=== PATIENT | male | born 1975 | race Caucasian/White ===

== ENCOUNTER 2022-04-04 10:06 | Emergency (ER) | payer OTHER, SELFPAY ==
--- NOTE | ~2022-04-04 | CT_ITS ---
EXAMINATION: CT abdomen pelvis wo IV con CLINICAL INFORMATION: Reason for Exam mid to lower back pain radating to r flank/hip COMPARISON: No prior CT available for comparison. TECHNIQUE: Multidetector volumetric imaging was performed from the superior aspect of the liver through the pubic symphysis noncontrasted study. Sagittal and coronal reformatted images were obtained on the technologist's workstation. This CT examination was performed using dose optimization techniques as appropriate, variously including the following: *Automated exposure control *Adjustment of mA and/or kV according to patient size (this includes techniques or standardized protocols for targeted exams where dose is matched to indication/reason for exam; i.e. extremities or head) *Use of iterative reconstruction technique DLP: 653 mGy-cm FINDINGS: LOWER THORAX: Included lung bases are clear. HEPATOBILIARY: No focal hepatic lesions. No biliary ductal dilatation. GALLBLADDER: Gallbladder has been removed. Surgical clips in place. SPLEEN: Spleen is normal in size. PANCREAS: No focal mass or ductal dilatation. STOMACH AND GASTROINTESTINAL TRACT: Stomach is grossly unremarkable. There is no bowel distention or thickening. No CT evidence of appendicitis. ADRENALS: No adrenal nodules. KIDNEYS/URETERS: Cystic structure protruding from the upper pole left kidney measures 2.3 cm not well characterized on this noncontrast CT scan. Parts cyst middle pole right kidney measures 4.4 cm, the attenuation of its matrix 27 Hounsfield units, this is higher than expected for simple cysts, however unchanged from prior study of 2015 presumably benign. There is 5 mm right renal cortical calcification probably stone. No kidney stone or hydronephrosis. Kidneys normal in size. Perinephric fat are clear. URINARY BLADDER: Partially decompressed. PELVIC VISCERA: Unremarkable PERITONEUM: No free air or fluid. LYMPH NODES: No lymphadenopathy. VASCULAR:Abdominal aorta normal in size, no aneurysm found. BONES, ABDOMINAL WALL AND SOFT TISSUES: Age-appropriate changes of the spine and skeletal system, no destructive osteolytic or osteosclerotic bone lesion found CT/CT abdomen pelvis wo IV con IMPRESSION: * No CT evidence of acute intra-abdominal process to explain patient's pain symptoms. * There is 5 mm right renal cortical calcification probably nonobstructing stone. No hydronephrosis. * Bilateral renal cysts unchanged from prior CT of 2015, the largest is 4.4 cm middle pole right kidney, the attenuation of its matrix 27 Hounsfield units, this is higher than expected for simple cysts, however unchanged from prior CT of 2015 presumably benign. Ultrasound could be utilized for further characterization if clinically indicated. * Status post cholecystectomy.
[2022-04-04 10:08] VITALS: BP 181/111; PULSE 100; RESP 19; TEMP 36.6; O2SAT 98; BMI 30.2
[2022-04-04] MEDS: Cyclobenzaprine HCl 10 MG TABLET PO (10:45)
[2022-04-04] MEDS: oxyCODONE HCl Immed Release 5 MG TABLET PO (10:45)
[2022-04-04] MEDS: Ketorolac Tromethamine 60 MG/2 ML VIAL IM (10:46)
[2022-04-04 10:49] VITALS: BP 174/106; PULSE 100
--- NOTE | 2022-04-04 10:52 | PC.NURSE ---
Pt pacing in room, reporting 10/10 back pain for months, worse today. Medicated per the JUN.
--- NOTE | 2022-04-04 11:30 | ED.BACK ---
HPI - Back Pain/Injury General Chief Complaint: Back Pain/Injury <RENATO Keith Last Filed: 04/04/22 18:11> Stated Complaint: back pain <RENATO Keith Last Filed: 04/04/22 18:11> Time Seen by Provider: 04/04/22 10:20 <RENATO Keith Last Filed: 04/04/22 18:11> Source: patient <RENATO Keith Last Filed: 04/04/22 18:11> Mode of arrival: ambulatory <RENATO Keith Last Filed: 04/04/22 18:11> Limitations: no limitations <RENATO Keith Last Filed: 04/04/22 18:11> History of Present Illness HPI Narrative: 46yoM c PMHx of asthma, hyperlipidemia, GERD, anxiety, depression and Agoraphobia who is presenting to the ED with complaints of 2 months of back pain which started after he was lifting at home. Worse today. Reports it is worse with movement. Reports that the pain is sharp in nature. Reports it is the mid to lower back now radiating to bilateral flanks. Reports he has had back pain in the past although this feels different. Reports he went to an urgent care and was given muscle relaxant and provided mild to no symptomatic relief. He denies any fevers, chills, chest pain or shortness of breath, dyspnea on exertion, orthopnea palpitations, cough, rashes, recent falls or trauma, nausea vomiting, urinary or bowel incontinence or retention, IV drug use, saddle anesthesia, dysuria, hematuria, abnormal penile discharge, diarrhea constipation or any other symptoms complaints or concerns at this time. <RENATO Keith Last Filed: 04/04/22 18:11> MD elicited complaint: back pain <RENATO Keith Last Filed: 04/04/22 18:11> Onset (ago): month(s) (2 worse today) <RENATO Keith Last Filed: 04/04/22 18:11> Timing: constant <RENATO Keith Last Filed: 04/04/22 18:11> Severity: moderate <RENATO Keith Last Filed: 04/04/22 18:11> Similar Symptoms Previously: Yes <RENATO Keith - Last Filed: 04/04/22 18:11> Quality: sharp <RENATO Keith - Last Filed: 04/04/22 18:11> Location: lumbar spine and thoracic spine <RENATO Keith - Last Filed: 04/04/22 18:11> Radiation: abdomen (Bilateral flank) <RENATO Keith - Last Filed: 04/04/22 18:11> Exacerbating factors: movement, supine positioning, walking and lifting <RENATO Keith - Last Filed: 04/04/22 18:11> Relieving factors: none <RENATO Keith - Last Filed: 04/04/22 18:11> Context: while lifting, turning/twisting and bending <RENATO Keith - Last Filed: 04/04/22 18:11> Associated symptoms: denies other symptoms <RENATO Keith - Last Filed: 04/04/22 18:11> Treatments prior to arrival: NSAIDS, acetaminophen and other medications (muscle relaxants) <RENATO Keith - Last Filed: 04/04/22 18:11> Work related injury: No <RENATO Keith - Last Filed: 04/04/22 18:11> Related Data Home Medications: Home Medications Medication Instructions Recorded Confirmed albuterol sulfate 90 mcg/actuation 0 mcg inhalation 06/18/21 aerosol inhaler atorvastatin 10 mg tablet 10 mg PO DAILY 06/18/21 blood sugar diagnostic (FreeStyle #10 ea 06/18/21 Lite Strips) clonazepam 0.5 mg tablet 0 mg PO 06/18/21 dulaglutide 3 mg/0.5 mL mg subcut 06/18/21 subcutaneous pen injector ([facility]) ergocalciferol (vitamin D2) 1,250 1,250 mcg PO QWEEK 06/18/21 mcg (50,000 unit) capsule escitalopram oxalate 20 mg tablet 20 mg PO DAILY 06/18/21 esomeprazole magnesium 40 mg 40 mg PO BID 06/18/21 capsule,delayed release flash glucose sensor (FreeStyle #1 ea 06/18/21 Shelly 2 Sensor kit) fluticasone propionate 50 spray intranasal 06/18/21 mcg/actuation nasal spray,suspension insulin glargine 100 unit/mL (3 unit subcut 06/18/21 mL) subcutaneous pen (Lantus Solostar U-100 Insulin) metformin 1,000 mg tablet 1,000 mg PO BID 06/18/21 metoprolol succinate 50 mg 75 mg PO DAILY 06/18/21 tablet,extended release 24 hr pen needle, diabetic 32 gauge x #50 ea 06/18/21 (BD Venessa 2nd Gen Pen Needle) testosterone 50 mg/5 gram (1 %) 0 mg topical 06/18/21 transdermal gel umeclidinium 62.5 mcg-vilanterol 1 ea inhalation DAILY 06/18/21 25 mcg/actuation powdr for inhalation (Anoro Ellipta) Previous Rx's Medication Instructions Recorded amoxicillin 400 mg/5 mL oral 800 mg (10 mL) PO BID 7 days #140 06/18/21 suspension mL cyclobenzaprine 10 mg tablet 10 mg PO Q8H #14 tabs 04/04/22 naproxen 500 mg tablet 500 mg PO BID PRN pain #14 tabs 04/04/22 <RENATO Keith - Last Filed: 04/04/22 18:11> Allergies/Adverse Reactions: Allergies Allergy/AdvReac Type Severity Reaction Status Date / Time clindamycin Allergy Mild Rash Verified 06/18/21 15:53 doxycycline Allergy Mild Rash Verified 06/18/21 15:53 latex [LATEX] Allergy Mild SKIN Verified 04/04/22 12:04 IRRITATION <RENATO Keith - Last Filed: 04/04/22 18:11> Review of Systems Review of Systems: Constitutional : No trauma, No Weight loss, No Fever, No Chills, ENT/Mouth : No Hearing loss, No Ear Pain, No Nasal Congestion, No Sinus Pain, No Hoarseness, No sore throat, No Rhinorrhea, No Swallowing Difficulty Cardiovascular : No Chest Pain, No SOB Respiratory : No Cough, No Dyspnea Gastrointestinal : No Nausea, No Vomiting, No Diarrhea, + abdominal Pain, No Hematochezia, No Melena Genitourinary : No Dysuria, No Urinary Frequency, No Hematuria, No Urinary or Bowel Incontinence/retention Musculoskeletal : + Back pain, No neck pain, No joint stiffness, No joint swelling Skin : No Skin Lesions, No rash or signs of infection Neuro : No Weakness, No radiation, No Numbness, No Paresthesias, No headache, no loss of bowel or bladder incontinence, no saddle anesthesia, Focal weakness, No radiation Denies history of IV drug usage. <RENATO Keith - Last Filed: 04/04/22 18:11> Yes all other systems are reviewed and are negative <RENATO Keith - Last Filed: 04/04/22 18:11> [facility] Past Medical History Attestation statement: The following information was validated with the patient. <RENATO Keith - Last Filed: 04/04/22 18:11> Social History Social History: Social History Advance Directives: Yes Advance Directives Information Provided: Yes Advance Directives on File: No <RENATO Keith - Last Filed: 04/04/22 18:11> Physical Exam Vital Signs: Vital Signs: Last Vital Signs Temp 97.8 F 04/04/22 18:00 Pulse 91 04/04/22 18:00 Resp 16 04/04/22 18:00 BP 173/97 H 04/04/22 18:00 Pulse Ox 98 04/04/22 18:00 O2 Del Method 04/04/22 18:00 BMI result Body Mass Index 30.2 vital signs have been reviewed as normal and appeared to be correct. Blood pressure normal. Heart rate normal. Respiration rate normal. Temperature normal. Oxygen saturation normal. <RENATO Keith - Last Filed: 04/04/22 18:11> Vital Signs: Last Vital Signs Temp 97.8 F 04/04/22 18:00 Pulse 91 04/04/22 18:00 Resp 16 04/04/22 18:00 BP 173/97 H 04/04/22 18:00 Pulse Ox 98 04/04/22 18:00 O2 Del Method 04/04/22 18:00 BMI result Body Mass Index 30.2 <RENATO Cramer - Last Filed: 04/04/22 19:08> Appearance: Alert. Oriented X3. No acute distress. Head: Normal external exam. Normocephalic. Atraumatic. No Alvarez signs noted. No raccoon eyes noted Eyes: PERRLA. EOMI. Conjunctiva and sclera normal. Eyelids normal. ENT: EAC normal. TM's Normal. Pharynx normal. Uvula midline. Moist mucous membranes. No trismus noted. No drooling noted. No muffled voice noted. Neck: Normal inspection. Neck supple. FROM. No adenopathy. Thyroid Normal. No meningeal signs. No neck mass noted. CVS: Normal heart rate and rhythm. Heart sound normal. No murmurs noted. Pulses normal throughout. Respiratory: No respiratory distress. Painless inspiration. Breath sounds normal. No wheezes/rales/rhonchi noted. Chest nontender. No accessory muscle usage noted or decreased air movement noted. Abdomen: Soft and nontender. Bowel sounds normal in all 4 quadrants. No distention noted. No organomegaly noted. No visible injury noted. Back: No CVA tenderness. Full range of motion noted. No obvious deformities, or edema. Mild para-spinal muscular tenderness from lumbar region to coccyx. Full ROM in back and lower extremities. 5/5 strength hip extension/flexion, abduction, adduction. Mild Lumbar pain with hip flexion against resistance. Straight leg raise test negative on right; Straight leg raise test negative on left; Reflexes normal ankle and knee bilaterally; EHL motor strength normal bilaterally. No rashes/lesion/induration/fluctuance or signs infection noted. Skin: Skin warm and dry. Normal skin color. Normal skin turgor. No rashes/lesions/lacerations noted. Extremities: No lower extremity edema. Extremities exhibit normal range of motion. Extremities nontender. Neuro: Oriented X 3. No motor deficit. No sensory deficit. Reflexes normal. Patient has a normal steady gait. <RENATO Keith - Last Filed: 04/04/22 18:11> Course Course Course Narrative: 10:30am Pt c likely muscular pain, but could be herniated disc. Neuro exam shows no deficits. Not c/w AAA/epidural abscess/dissection.No high risk Hx (Incont, fever, immunosupp, recent surgery/LP, coag, signif trauma, wt loss, puls mass, hx/o Ca, TB, or IVDU) to warrant MRI. Not c/w Pyelo/UTI/spinal fx. Not cauda equina syndrome. Will obtain CT scan abdomen pelvis without IV contrast to evaluate for possible kidney stones. Provide symptomatic treatment with IM Toradol 60 mg, 10 mg of p.o. Flexeril and 5 mg of oxycodone and re-evaluate. <RENATO Keith - Last Filed: 04/04/22 18:11> Reevaluation(s) Reevaluation #1: Labs revealed - patient with mild anemia with an H&H of 11.8/35.6. - potassium 2.6 - BUN for - random glucose 161 - magnesium 1.2 Otherwise all other labs are within normal limits Imaging CT scan of abdomen pelvis without IV contrast= renal cysts which are chronic and similar compared to a prior CT of 2015 no acute processes are noted. Plan: Therefore at this time I ordered two 10mEq of IV potassium and 40 mEq of p.o. potassium along with 2 g of magnesium and will recheck after this is completed. Patient understands agrees with this plan. <RENATO Keith - Last Filed: 04/04/22 18:11> Time: 12:00 <RENATO Keith Last Filed: 04/04/22 18:11> Reevaluation #2: Patient just finished his IV potassium/IV magnesium and p.o. potassium therefore at this time will repeat a basic metabolic panel. If the potassium and magnesium are improved patient can be discharged with instructions to follow-up with PCP he reports he does have a primary care provider. Patient understands agrees with this plan. Sign out to SHIRA Can <RENATO Keith - Last Filed: 04/04/22 18:11> Time: 18:01 <RENATO Keith - Last Filed: 04/04/22 18:11> Reevaluation #3: Labs returning with persistent hypokalemia, potassium only went up to 2.7 from 2.6 after 60 mEq. Will give 40 mEq IV and repeat 40 mEq p.o. home meds reviewed, no medications to cause hypokalemia. He states he usually has low potassium and does eat bananas every day for this. He is not on diuretics. He is on losartan. Will plan to admit the patient for observation, close monitoring of his potassium. <RENATO Cramer Last Filed: 04/04/22 19:08> Time: 19:06 <RENATO Cramer Last Filed: 04/04/22 19:08> Medications Administered Discontinued Medications Generic Name Dose Route Start Last Admin Trade Name Salvadorq PRN Reason Stop Dose Admin Cyclobenzaprine HCl 10 mg 04/04/22 10:37 04/04/22 10:45 Cyclobenzaprine Hcl 10 Mg Tablet PO 04/04/22 10:38 10 mg ONCE ONE Administration Magnesium Sulfate 2 gm in 50 mls @ 25 mls/hr 04/04/22 11:50 04/04/22 15:13 Magnesium Sulfate/H2o IV 04/04/22 13:49 Infused ONCE ONE Infusion Potassium Chloride 10 meq in 100 mls @ 100 mls/hr 04/04/22 12:15 04/04/22 18:21 Potassium Chloride/H20 IV 04/04/22 14:14 Infused Q1H MARTY Infusion Ketorolac Tromethamine 60 mg 04/04/22 10:37 04/04/22 10:46 Ketorolac Tromethamine 60 Mg/2 Ml Vial IM 04/04/22 10:38 60 mg ONCE ONE Administration Oxycodone HCl 5 mg 04/04/22 10:37 04/04/22 10:45 Oxycodone Hcl Immed Release 5 Mg Tablet PO 04/04/22 10:38 5 mg ONCE ONE Administration Potassium Chloride 40 meq 04/04/22 11:59 04/04/22 12:51 Potassium Chloride Packet 20 Meq Packet PO 04/04/22 12:00 40 meq ONCE ONE Administration <RENATO Keith - Last Filed: 04/04/22 18:11> Medications Administered Discontinued Medications Generic Name Dose Route Start Last Admin Trade Name Salvadorq PRN Reason Stop Dose Admin Cyclobenzaprine HCl 10 mg 04/04/22 10:37 04/04/22 10:45 Cyclobenzaprine Hcl 10 Mg Tablet PO 04/04/22 10:38 10 mg ONCE ONE Administration Magnesium Sulfate 2 gm in 50 mls @ 25 mls/hr 04/04/22 11:50 04/04/22 15:13 Magnesium Sulfate/H2o IV 04/04/22 13:49 Infused ONCE ONE Infusion Potassium Chloride 10 meq in 100 mls @ 100 mls/hr 04/04/22 12:15 04/04/22 18:21 Potassium Chloride/H20 IV 04/04/22 14:14 Infused Q1H MARTY Infusion Ketorolac Tromethamine 60 mg 04/04/22 10:37 04/04/22 10:46 Ketorolac Tromethamine 60 Mg/2 Ml Vial IM 04/04/22 10:38 60 mg ONCE ONE Administration Oxycodone HCl 5 mg 04/04/22 10:37 04/04/22 10:45 Oxycodone Hcl Immed Release 5 Mg Tablet PO 04/04/22 10:38 5 mg ONCE ONE Administration Potassium Chloride 40 meq 04/04/22 11:59 04/04/22 12:51 Potassium Chloride Packet 20 Meq Packet PO 04/04/22 12:00 40 meq ONCE ONE Administration <RENATO Cramer - Last Filed: 04/04/22 19:08> Medical Decision Making Lab Data MDM Lab Attestation statement: I reviewed the patient's lab results. <RENATO Keith - Last Filed: 04/04/22 18:11> Result Diagrams: : 04/04/22 11:19 04/04/22 18:20 <RENATO Keith - Last Filed: 04/04/22 18:11> Labs: Lab Results 04/04/22 04/04/22 04/04/22 Range/Units 11:19 11:19 11:19 WBC 10.6 (4.8-10.8) X10*3/uL RBC 4.43 L (4.60-5.80) X10*6/uL Hgb 11.8 L (14.0-18.0) g/dl Hct 35.6 L (42.0-52.0) % MCV 80.4 (80.0-98.0) fL MCH 26.6 L (27.0-33.0) pg MCHC 33.1 (31.0-36.0) g/dl RDW 14.8 (11.0-16.0) % Plt Count 299 (160-400) X10*3/uL MPV 8.5 L (9.4-12.4) fL Immature Gran % (Auto) 0.2 (0.0-0.4) % Neut % (Auto) 49.2 (45-73) % Lymph % (Auto) 41.2 H (20-40) % Baca % (Auto) 6.6 (2-11) % Eos % (Auto) 2.2 (0-4) % Baso % (Auto) 0.6 (0-2) % Lymph # (Auto) 4.4 (1.2-4.9) X10*3/uL Baca # (Auto) 0.7 (0.1-1.2) X10*3/uL Eos # (Auto) 0.2 (0.0-0.4) X10*3/uL Baso # (Auto) 0.1 (0.0-0.2) X10*3/uL Abs Immat Gran (auto) 0.02 (0.00-0.03) X10*3/uL Absolute Neuts (auto) 5.2 (2.0-8.3) x10*3/uL Absolute Nucleated RBC 0.000 (0.0-0.012) X10*3/uL Nucleated RBC % (auto) 0.0 (0.0-0.2) /100WBC PT 10.4 (10.0-13.1) SEC INR 0.9 (0.9-1.1) Sodium 137 (135-145) mmol/L Potassium 2.6 L (3.3-5.1) mmol/L Chloride 99 (96-108) mmol/L Carbon Dioxide 28 (22-29) mmol/L Anion Gap 13 (12-20) BUN 4 L (9-16) mg/dL Creatinine 0.83 (0.5-1.4) mg/dL Estim Creat Clear Calc 114.7 Estimated GFR > 60 Random Glucose 161 H (60-115) mg/dL Calcium 8.6 (8.4-10.2) mg/dL Magnesium 1.2 L* (1.6-2.6) mg/dL Total Bilirubin 0.2 (0.0-1.0) mg/dL AST 16 (5-37) U/L ALT 12 (0-40) U/L Alkaline Phosphatase 90 (39-117) U/L Total Protein 6.4 L (6.5-8.0) g/dL Albumin 3.5 (3.5-5.0) g/dL Urine Color Urine Appearance Urine pH (5.0-9.0) Ur Specific Campbell (1.005-1.025) Urine Protein (Neg-Trace) mg/dL Urine Glucose (UA) (Negative) mg/dL Urine Ketones (Negative) mg/dL Urine Blood (Negative) Urine Nitrite (Negative) Ur Leukocyte Esterase (Negative) Urine RBC (0-2) /HPF Urine WBC (0-5) /HPF Ur Squamous Epith Cells (0-2) /HPF Urine Bacteria (None Seen) Hyaline Casts (0-2) /LPF 04/04/22 04/04/22 Range/Units 18:20 18:20 WBC (4.8-10.8) X10*3/uL RBC (4.60-5.80) X10*6/uL Hgb (14.0-18.0) g/dl Hct (42.0-52.0) % MCV (80.0-98.0) fL MCH (27.0-33.0) pg MCHC (31.0-36.0) g/dl RDW (11.0-16.0) % Plt Count (160-400) X10*3/uL MPV (9.4-12.4) fL Immature Gran % (Auto) (0.0-0.4) % Neut % (Auto) (45-73) % Lymph % (Auto) (20-40) % Baca % (Auto) (2-11) % Eos % (Auto) (0-4) % Baso % (Auto) (0-2) % Lymph # (Auto) (1.2-4.9) X10*3/uL Baca # (Auto) (0.1-1.2) X10*3/uL Eos # (Auto) (0.0-0.4) X10*3/uL Baso # (Auto) (0.0-0.2) X10*3/uL Abs Immat Gran (auto) (0.00-0.03) X10*3/uL Absolute Neuts (auto) (2.0-8.3) x10*3/uL Absolute Nucleated RBC (0.0-0.012) X10*3/uL Nucleated RBC % (auto) (0.0-0.2) /100WBC PT (10.0-13.1) SEC INR (0.9-1.1) Sodium 142 (135-145) mmol/L Potassium 2.7 L (3.3-5.1) mmol/L Chloride 102 (96-108) mmol/L Carbon Dioxide 32 H (22-29) mmol/L Anion Gap 11 L (12-20) BUN 4 L (9-16) mg/dL Creatinine 0.78 (0.5-1.4) mg/dL Estim Creat Clear Calc 122.1 Estimated GFR > 60 Random Glucose 141 H (60-115) mg/dL Calcium 8.5 (8.4-10.2) mg/dL Magnesium 1.7 (1.6-2.6) mg/dL Total Bilirubin (0.0-1.0) mg/dL AST (5-37) U/L ALT (0-40) U/L Alkaline Phosphatase (39-117) U/L Total Protein (6.5-8.0) g/dL Albumin (3.5-5.0) g/dL Urine Color Yellow Urine Appearance Clear Urine pH 6.0 (5.0-9.0) Ur Specific Campbell <= 1.005 (1.005-1.025) Urine Protein Negative (Neg-Trace) mg/dL Urine Glucose (UA) Negative (Negative) mg/dL Urine Ketones Negative (Negative) mg/dL Urine Blood Negative (Negative) Urine Nitrite Negative (Negative) Ur Leukocyte Esterase Trace H (Negative) Urine RBC 0-2 (0-2) /HPF Urine WBC 0-5 (0-5) /HPF Ur Squamous Epith Cells 0-2 (0-2) /HPF Urine Bacteria None Seen (None Seen) Hyaline Casts 0-2 (0-2) /LPF <RENATO Keith - Last Filed: 04/04/22 18:11> Lab Results 04/04/22 04/04/22 04/04/22 Range/Units 11:19 11:19 11:19 WBC 10.6 (4.8-10.8) X10*3/uL RBC 4.43 L (4.60-5.80) X10*6/uL Hgb 11.8 L (14.0-18.0) g/dl Hct 35.6 L (42.0-52.0) % MCV 80.4 (80.0-98.0) fL MCH 26.6 L (27.0-33.0) pg MCHC 33.1 (31.0-36.0) g/dl RDW 14.8 (11.0-16.0) % Plt Count 299 (160-400) X10*3/uL MPV 8.5 L (9.4-12.4) fL Immature Gran % (Auto) 0.2 (0.0-0.4) % Neut % (Auto) 49.2 (45-73) % Lymph % (Auto) 41.2 H (20-40) % Baca % (Auto) 6.6 (2-11) % Eos % (Auto) 2.2 (0-4) % Baso % (Auto) 0.6 (0-2) % Lymph # (Auto) 4.4 (1.2-4.9) X10*3/uL Baca # (Auto) 0.7 (0.1-1.2) X10*3/uL Eos # (Auto) 0.2 (0.0-0.4) X10*3/uL Baso # (Auto) 0.1 (0.0-0.2) X10*3/uL Abs Immat Gran (auto) 0.02 (0.00-0.03) X10*3/uL Absolute Neuts (auto) 5.2 (2.0-8.3) x10*3/uL Absolute Nucleated RBC 0.000 (0.0-0.012) X10*3/uL Nucleated RBC % (auto) 0.0 (0.0-0.2) /100WBC PT 10.4 (10.0-13.1) SEC INR 0.9 (0.9-1.1) Sodium 137 (135-145) mmol/L Potassium 2.6 L (3.3-5.1) mmol/L Chloride 99 (96-108) mmol/L Carbon Dioxide 28 (22-29) mmol/L Anion Gap 13 (12-20) BUN 4 L (9-16) mg/dL Creatinine 0.83 (0.5-1.4) mg/dL Estim Creat Clear Calc 114.7 Estimated GFR > 60 Random Glucose 161 H (60-115) mg/dL Calcium 8.6 (8.4-10.2) mg/dL Magnesium 1.2 L* (1.6-2.6) mg/dL Total Bilirubin 0.2 (0.0-1.0) mg/dL AST 16 (5-37) U/L ALT 12 (0-40) U/L Alkaline Phosphatase 90 (39-117) U/L Total Protein 6.4 L (6.5-8.0) g/dL Albumin 3.5 (3.5-5.0) g/dL Urine Color Urine Appearance Urine pH (5.0-9.0) Ur Specific Campbell (1.005-1.025) Urine Protein (Neg-Trace) mg/dL Urine Glucose (UA) (Negative) mg/dL Urine Ketones (Negative) mg/dL Urine Blood (Negative) Urine Nitrite (Negative) Ur Leukocyte Esterase (Negative) Urine RBC (0-2) /HPF Urine WBC (0-5) /HPF Ur Squamous Epith Cells (0-2) /HPF Urine Bacteria (None Seen) Hyaline Casts (0-2) /LPF 04/04/22 04/04/22 Range/Units 18:20 18:20 WBC (4.8-10.8) X10*3/uL RBC (4.60-5.80) X10*6/uL Hgb (14.0-18.0) g/dl Hct (42.0-52.0) % MCV (80.0-98.0) fL MCH (27.0-33.0) pg MCHC (31.0-36.0) g/dl RDW (11.0-16.0) % Plt Count (160-400) X10*3/uL MPV (9.4-12.4) fL Immature Gran % (Auto) (0.0-0.4) % Neut % (Auto) (45-73) % Lymph % (Auto) (20-40) % Baca % (Auto) (2-11) % Eos % (Auto) (0-4) % Baso % (Auto) (0-2) % Lymph # (Auto) (1.2-4.9) X10*3/uL Baca # (Auto) (0.1-1.2) X10*3/uL Eos # (Auto) (0.0-0.4) X10*3/uL Baso # (Auto) (0.0-0.2) X10*3/uL Abs Immat Gran (auto) (0.00-0.03) X10*3/uL Absolute Neuts (auto) (2.0-8.3) x10*3/uL Absolute Nucleated RBC (0.0-0.012) X10*3/uL Nucleated RBC % (auto) (0.0-0.2) /100WBC PT (10.0-13.1) SEC INR (0.9-1.1) Sodium 142 (135-145) mmol/L Potassium 2.7 L (3.3-5.1) mmol/L Chloride 102 (96-108) mmol/L Carbon Dioxide 32 H (22-29) mmol/L Anion Gap 11 L (12-20) BUN 4 L (9-16) mg/dL Creatinine 0.78 (0.5-1.4) mg/dL Estim Creat Clear Calc 122.1 Estimated GFR > 60 Random Glucose 141 H (60-115) mg/dL Calcium 8.5 (8.4-10.2) mg/dL Magnesium 1.7 (1.6-2.6) mg/dL Total Bilirubin (0.0-1.0) mg/dL AST (5-37) U/L ALT (0-40) U/L Alkaline Phosphatase (39-117) U/L Total Protein (6.5-8.0) g/dL Albumin (3.5-5.0) g/dL Urine Color Yellow Urine Appearance Clear Urine pH 6.0 (5.0-9.0) Ur Specific Campbell <= 1.005 (1.005-1.025) Urine Protein Negative (Neg-Trace) mg/dL Urine Glucose (UA) Negative (Negative) mg/dL Urine Ketones Negative (Negative) mg/dL Urine Blood Negative (Negative) Urine Nitrite Negative (Negative) Ur Leukocyte Esterase Trace H (Negative) Urine RBC 0-2 (0-2) /HPF Urine WBC 0-5 (0-5) /HPF Ur Squamous Epith Cells 0-2 (0-2) /HPF Urine Bacteria None Seen (None Seen) Hyaline Casts 0-2 (0-2) /LPF <RENATO Cramer - Last Filed: 04/04/22 19:08> Independent Interpretation I performed an independent interpretation of an: CT Scan <RENATO Keith - Last Filed: 04/04/22 18:11> Interpretation: CT scan abdomen pelvis without IV contrast FINDINGS: LOWER THORAX: Included lung bases are clear. HEPATOBILIARY: No focal hepatic lesions. No biliary ductal dilatation. GALLBLADDER: Gallbladder has been removed. Surgical clips in place. SPLEEN: Spleen is normal in size. PANCREAS: No focal mass or ductal dilatation. STOMACH AND GASTROINTESTINAL TRACT: Stomach is grossly unremarkable. There is no bowel distention or thickening. No CT evidence of appendicitis. ADRENALS: No adrenal nodules. KIDNEYS/URETERS: Cystic structure protruding from the upper pole left kidney measures 2.3 cm not well characterized on this noncontrast CT scan. Parts cyst middle pole right kidney measures 4.4 cm, the attenuation of its matrix 27 Hounsfield units, this is higher than expected for simple cysts, however unchanged from prior study of 2015 presumably benign. There is 5 mm right renal cortical calcification probably stone. No kidney stone or hydronephrosis. Kidneys normal in size. Perinephric fat are clear. URINARY BLADDER: Partially decompressed. PELVIC VISCERA: Unremarkable PERITONEUM: No free air or fluid. LYMPH NODES: No lymphadenopathy. VASCULAR:Abdominal aorta normal in size, no aneurysm found. BONES, ABDOMINAL WALL AND SOFT TISSUES: Age-appropriate changes of the spine and skeletal system, no destructive osteolytic or osteosclerotic bone lesion found CT/CT abdomen pelvis wo IV con IMPRESSION: ? *? No CT evidence of acute intra-abdominal process to explain patient's pain symptoms. ? *? There is 5 mm right renal cortical calcification probably nonobstructing stone. No hydronephrosis. ? *? Bilateral renal cysts unchanged from prior CT of 2015, the largest is 4.4 cm middle pole right kidney, the attenuation of its matrix 27 Hounsfield units, this is higher than expected for simple cysts, however unchanged from prior CT of 2015 presumably benign. Ultrasound could be utilized for further characterization if clinically indicated. ? *? Status post cholecystectomy. <RENATO Keith - Last Filed: 04/04/22 18:11> Radiology Impression Discussion of test interpretation with radiology: I have reviewed the radiologist's reading. <RENATO Keith - Last Filed: 04/04/22 18:11> External Record Review External record reviewed: Inpatient record, Office record, Outpatient record, Prior outpatient labs, Prior outpatient radiology, Primary care record and Outside ED record <RENATO Keith - Last Filed: 04/04/22 18:11> Prescription Management I considered prescription management with: Pain Medication <RENATO Keith Last Filed: 04/04/22 18:11> Critical Care Time Critical Care Time Critical Care Time: Yes <RENATO Keith Last Filed: 04/04/22 18:11> Total Critical Care Time: 60 <RENATO Keith Last Filed: 04/04/22 18:11> Attestation: I personally attest to this time spent taking care of the patient <RENATO Keith Last Filed: 04/04/22 18:11> Discharge Plan Discharge Clinical Impression: Low blood potassium, Low blood magnesium, Renal cyst, Back strain <RENATO Keith Last Filed: 04/04/22 18:11> Patient Disposition: Admitted As Inpatient <RENATO Keith Last Filed: 04/04/22 18:11> Instructions: Potassium Content of Foods List (ED), Hypokalemia (ED), Low Back Strain (ED), Kidney Cyst (ED) <RENATO Keith Last Filed: 04/04/22 18:11> Prescriptions: New naproxen 500 mg tablet 500 mg PO BID PRN (Reason: pain) Qty: 14 0RF cyclobenzaprine 10 mg tablet 10 mg PO Q8H Qty: 14 0RF No Action Trulicity 3 mg/0.5 mL pen injector subcut Lantus Solostar U-100 Insulin 100 unit/mL (3 mL) insulin pen subcut Anoro Ellipta 62.5-25 mcg/actuation blister with device 1 ea inhalation DAILY fluticasone propionate 50 mcg/actuation spray,suspension intranasal clonazepam 0.5 mg tablet 0 mg PO (DME) FreeStyle Shelly 2 Sensor Kit See Rx Instructions .ROUTE .MEDSUPPLY Qty: 1 Rx Instructions: As directed escitalopram oxalate 20 mg tablet 20 mg PO DAILY (DME) pen needle, diabetic [BD Venessa 2nd Gen Pen Needle] 32 gauge x 5/32 needle See Rx Instructions .ROUTE .MEDSUPPLY Qty: 50 Rx Instructions: As directed testosterone 50 mg/5 gram (1 %) gel 0 mg topical esomeprazole magnesium 40 mg capsule,delayed release(DR/EC) 40 mg PO BID albuterol sulfate 90 mcg/actuation HFA aerosol inhaler 0 mcg inhalation (DME) FreeStyle Lite Strips Strip See Rx Instructions Not Applicable .MEDSUPPLY Qty: 10 Rx Instructions: As directed metoprolol succinate 50 mg tablet extended release 24 hr 75 mg PO DAILY ergocalciferol (vitamin D2) 1,250 mcg (50,000 unit) capsule 1,250 mcg PO QWEEK metformin 1,000 mg tablet 1,000 mg PO BID atorvastatin 10 mg tablet 10 mg PO DAILY amoxicillin 400 mg/5 mL suspension for reconstitution 800 mg PO BID 7 Days Qty: 140 0RF <RENATO Keith - Last Filed: 04/04/22 18:11> Referrals: Milton Beaulieu III, MD [Primary Care Provider] - 2 days (For recheck potassium/magnesium level) <RENATO Keith - Last Filed: 04/04/22 18:11>
[2022-04-04 11:31] LABS: MANUAL DIFF FLAG NO
[2022-04-04 11:32] LABS: Basophils Absolute Auto 0.1 X10*3/uL (0.0-0.2); Basophils Percent Auto 0.6 % (0-2); Eosinophils Absolute Auto 0.2 X10*3/uL (0.0-0.4); Eosinophils Percent Auto 2.2 % (0-4); Hematocrit 35.6 % (42.0-52.0); Hemoglobin 11.8 g/dl (14.0-18.0); Imm Gran Abs Auto 0.02 X10*3/uL (0.00-0.03); Imm Gran Pct Auto 0.2 % (0.0-0.4); Lymphocytes Absolute Auto 4.4 X10*3/uL (1.2-4.9); Lymphocytes Percent Auto 41.2 % (20-40); Mean Corpuscular HGB Conc 33.1 g/dl (31.0-36.0); Mean Corpuscular Hemoglobin 26.6 pg (27.0-33.0); Mean Corpuscular Volume 80.4 fL (80.0-98.0); Mean Platelet Volume 8.5 fL (9.4-12.4); Monocytes Absolute Auto 0.7 X10*3/uL (0.1-1.2); Monocytes Percent Auto 6.6 % (2-11); Neutrophils Absolute Auto 5.2 x10*3/uL (2.0-8.3); Neutrophils Percent Auto 49.2 % (45-73); Platelet Count 299 X10*3/uL (160-400); Red Blood Count 4.43 X10*6/uL (4.60-5.80); Red Cell Distribution Width 14.8 % (11.0-16.0); White Blood Count 10.6 X10*3/uL (4.8-10.8)
[2022-04-04 11:46] LABS: INTERNATIONAL NORM RATIO 0.9 (0.9-1.1); Prothrombin Time 10.4 SEC (10.0-13.1)
[2022-04-04 11:51] LABS: Alanine Aminotransferase 12 U/L (0-40); Albumin Level 3.5 g/dL (3.5-5.0); Alkaline Phosphatase 90 U/L (39-117); Anion Gap 13 (12-20); Aspartate Amino Transferase 16 U/L (5-37); Bilirubin Total 0.2 mg/dL (0.0-1.0); Blood Urea Nitrogen 4 mg/dL (9-16); Calcium 8.6 mg/dL (8.4-10.2); Carbon Dioxide 28 mmol/L (22-29); Chloride 99 mmol/L (96-108); Creatinine Clr Calc Pharmacy 114.7; Estimated Glomerular Filt Rate > 60; Glucose Random 161 mg/dL (60-115); Magnesium 1.2 mg/dL (1.6-2.6); Potassium 2.6 mmol/L (3.3-5.1); Sodium 137 mmol/L (135-145); Total Protein 6.4 g/dL (6.5-8.0)
--- NOTE | 2022-04-04 11:59 | ECG_ITS ---
Test Reason : LOW POTASSIUM Blood Pressure : / mmHG Vent. Rate : 091 BPM Atrial Rate : 091 BPM P-R Int : 172 ms QRS Dur : 090 ms QT Int : 394 ms P-R-T Axes : 054 007 012 degrees QTc Int : 484 ms Normal sinus rhythm Minimal voltage criteria for LVH, may be normal variant ( R in aVL ) Nonspecific T wave abnormality Prolonged QT Abnormal ECG When compared with ECG of 16-MAY-2014 17:40, Vent. rate has decreased BY 47 BPM Referred By: Letty Velez Electronically Signed By:MIKAELA ZEPEDA MD
[2022-04-04] MEDS: Potassium Chloride Packet 20 MEQ PACKET 40 MEQ PO (12:51)
[2022-04-04] MEDS: Magnesium Sulfate/H2O 2 GM/50 ML PIGGYBACK IV (12:52)
--- NOTE | 2022-04-04 13:19 | PC.NURSE ---
IV established, magnesium infusing. Potassium to be hung after d/t lack of extra pumps
[2022-04-04] MEDS: Potassium Chloride/H20 10 MEQ/100 ML PIGGYBACK 100 MEQ IV ×2 (15:13→16:18)
--- NOTE | 2022-04-04 15:17 | PC.NURSE ---
Addendum entered by Beryl Posada 04/04/22 15:17: Pt placed on laboratory monitor, 98 NSR. Original Note: IV potassium infusing
--- NOTE | 2022-04-04 16:22 | PC.NURSE ---
Second infusion of potassium hanging
[2022-04-04 16:45] VITALS: BP 179/102; PULSE 93; RESP 16; TEMP 36.6; O2SAT 97
[2022-04-04 18:00] VITALS: BP 173/97; PULSE 91; RESP 16; TEMP 36.6; O2SAT 98
--- NOTE | 2022-04-04 18:19 | PC.NURSE ---
Second bag of potassium completed. Awaiting repeat BMP
[2022-04-04 18:29] LABS: Appearance Urine Clear; Color Urine Yellow; Glucose Urine UA Negative (Negative); Leukocyte Esterase Urine Trace (Negative); Nitrite Urine Negative (Negative); Specific Gravity - Urine <= 1.005 (1.005-1.025); UMIC TRIGGER UACC YES; Urine Blood Negative (Negative); Urine Ketones Negative (Negative); Urine Protein Negative (Neg-Trace)
[2022-04-04 18:34] LABS: Bacteria Urine None Seen (None Seen); Hyaline Casts Urine 0-2 /LPF (0-2); RBC Urine 0-2 /HPF (0-2); Squamous Epithelial Cell Urine 0-2 /HPF (0-2); WBC Urine 0-5 /HPF (0-5)
[2022-04-04 18:42] LABS: Anion Gap 11 (12-20); Blood Urea Nitrogen 4 mg/dL (9-16); Calcium 8.5 mg/dL (8.4-10.2); Carbon Dioxide 32 mmol/L (22-29); Chloride 102 mmol/L (96-108); Creatinine Clr Calc Pharmacy 122.1; Estimated Glomerular Filt Rate > 60; Glucose Random 141 mg/dL (60-115); Magnesium 1.7 mg/dL (1.6-2.6); Potassium 2.7 mmol/L (3.3-5.1); Sodium 142 mmol/L (135-145)
[2022-04-04] MEDS: Potassium Chloride ER 20 MEQ TAB.ER.PRT 40 MEQ PO (19:09)
[2022-04-04 19:24] LABS: COVID-19 Test Negative (Negative); IDNOW Serial# 16C4AD1C
--- NOTE | 2022-04-04 19:32 | PC.NURSE ---
Pt took potassium tabs PO crushed in applesauce.
[2022-04-04 20:00] VITALS: BP 165/74; PULSE 74; RESP 16; TEMP 36.6; O2SAT 98
--- NOTE | 2022-04-04 20:05 | PC.NURSE ---
Pt requesting to speak with provider, requesting to leave
== END 2022-04-04 20:26 | disposition left against medical advice (07) ==
PROVIDERS: Physician Assistant; Physician Assistant Medical; Emergency Provider Emergency Medicine; PCP Internal Medicine
DX: I95.9 Hypotension, unspecified (principal); E83.42 Hypomagnesemia; N28.1 Cyst of kidney, acquired; M54.50 Low back pain, unspecified; R10.9 Unspecified abdominal pain; Z20.822 Contact with and (suspected) exposure to COVID-19; Z79.899 Other long term (current) drug therapy
CPT/HCPCS: 36415; 74176; 80048; 80053; 81001; 83735; 85025; 85610; 87635; 93005; 96365; 96366; 96372; 96375; 99285; J1885; J3475

== ENCOUNTER 2022-04-10 13:34 | Outpatient (REF) | payer OTHER, SELFPAY ==
--- NOTE | ~2022-04-10 | XR_ITS ---
EXAMINATION: XR lumbar spine 4V min CLINICAL INFORMATION: Reason for Exam M54.50 - Low back pain, unspecified COMPARISON: CT abdomen pelvis 04/04/2022 TECHNIQUE: 5 views of the lumbar spine FINDINGS: 5 nonrib-bearing lumbar-type vertebral bodies. Vertebral body heights are maintained. Alignment is maintained. No pars defects. Mild multilevel degenerative disc disease with degenerative endplate spurring and facet arthropathy. Atherosclerotic calcifications of the abdominal aorta. Left mid abdominal surgical clip. XR/XR lumbar spine 4V min IMPRESSION: * Mild spondylosis of the lumbar spine, as above detailed.
== END 2022-04-10 13:35 | disposition home or self-care (01) ==
LOC: HO.HMGCX 13:34
PROVIDERS: PCP Internal Medicine; Visit Provider Physician Assistant Medical
DX: M54.50 Low back pain, unspecified (principal)
CPT/HCPCS: 72110

== ENCOUNTER 2022-12-10 13:44 | Outpatient (REF) | payer OTHER, SELFPAY ==
[2022-12-02 07:03] VITALS: BP 80/48; BP 84/48
[2022-12-10 15:10] LABS: Potassium Urine Random 31.9 mmol/L
[2022-12-10 15:27] LABS: Anion Gap 13 (12-20); Blood Urea Nitrogen 18 mg/dL (9-16); Carbon Dioxide 23 mmol/L (22-29); Chloride 104 mmol/L (96-108); Estimated Glomerular Filt Rate 57; Potassium 4.1 mmol/L (3.3-5.1); Sodium 136 mmol/L (135-145)
[2022-12-18 14:19] LABS: Renin 18.46 ng/mL/h (0.25-5.82)
== END 2022-12-10 13:45 | disposition home or self-care (01) ==
LOC: HO.LAB 13:44
PROVIDERS: PCP Internal Medicine; Visit Provider Internal Medicine Hypertension Specialist
DX: E87.6 Hypokalemia (principal)
CPT/HCPCS: 36415; 80051; 82088; 82310; 82565; 84133; 84244; 84300; 84520

== ENCOUNTER 2023-02-14 13:23 | Outpatient (REF) | payer OTHER, SELFPAY ==
[2022-12-02 07:03] VITALS: BP 80/48; BP 84/48
[2023-01-25 07:09] VITALS: BP 80/48; BMI 28.1
[2023-02-14 15:41] LABS: Anion Gap 12 (12-20); Blood Urea Nitrogen 12 mg/dL (9-16); Calcium 9.3 mg/dL (8.4-10.2); Carbon Dioxide 26 mmol/L (22-29); Chloride 102 mmol/L (96-108); Estimated Glomerular Filt Rate > 60; Potassium 4.5 mmol/L (3.3-5.1); Sodium 135 mmol/L (135-145)
== END 2023-02-14 13:24 | disposition home or self-care (01) ==
LOC: HO.LAB 13:23
PROVIDERS: PCP Internal Medicine; Referring Provider Internal Medicine Cardiovascular Disease; Visit Provider Internal Medicine Nephrology
DX: N18.31 Chronic kidney disease, stage 3a (principal)
CPT/HCPCS: 36415; 80051; 82310; 82565; 84520

== ENCOUNTER 2023-02-21 13:30 | Outpatient (RCR) | payer OTHER, SELFPAY ==
[2022-12-02 07:03] VITALS: BP 80/48; BP 84/48
--- NOTE | 2022-12-02 14:38 | MHC.CR.ITI ---
[address] [phone] F: [phone] Please see additional notes from [address] [phone] F: [phone] Please see additional notes from [facility] Cardiac Rehab Initial Assessment/ITP Cardiac Rehab Initial Assessment/ITP Start: 12/02/22 07:02 Freq: Status: Active Protocol: Activity Type Activity Date Activity User E-sign Co-sign Detail Recorded Client Recorded Date Recorded By Document 12/02/22 07:03 FLO [id number] 12/02/22 07:37 FLO 12/02/22 07:03 Cardiac Rehab ITP Initial [Excercise] -Consultant Education Required No -Preferred Language Telugu -Number of sessions approved 36 -Diagnosis Coronary Stenting (PCI) Z98.61,STEMI I21.0 -Other Diagnosis STEMI with ALF to LAD. EF 20%. COPD, Agoraphobia, Type 2DM, Depression,HLD, HTN -Comments + Ischemic Cardiomyopathy, Also history of Esophagitis, current smoker [Functional Assessment] -6 Min Walk (distance in ft) 800 -METS Achieved 2.16 -Resting HR 88 -Resting BP 80/48 -Resting SpO2 98 -Exercise HR 101 -Exercise BP 84/48 -Exercise SpO2 98 -RPE 11 -Dyspnea No -ECG Summary SR [Pre Rehab] -Pre Rehab Home Exercise No -Comments Currently not exercising. Expresses he is unsure what to do. -Risk Stratification: High Risk Severely Participants depressed left ventricular function (EF <= 30%) -Fall Risk No -Comments Walking stick to assist with getting up. States he has dizziness with change of position; states Dr. White is aware and he was told to change positions slowly. [Exercise Plan] [Intervention] -Exercise Prescription NuStep, Recumbent Bike, Recumbent Elliptical, Rower,Treadmill ,UBE,Upright Bike,Weights -Duration Intensity 36 Sessions -Frequency 2-3x/week -Angina with Exercise No [Exercise Education] -Exercise Education Exercise orientation, Exercise safety ,Home exercise, RPE,Signs and symptoms,Warmup /cooldown -Date Completed 12/02/22 -Initials CD -Education Summary Exercise guidelines, RPE , Safety, Warm Up/Cool Down, S /S to report discussed by RN and hospital manager. Oriented to the gym. [Exercise Goals] -Exercise Most Days of the Week Yes -Exercise 30-45 mins/day Yes -Target HR Range +20 - +30 beats above resting -Target RPE range 11-13 -Increase METS next 30 days 0.5-1.0 METS Every two weeks -METs goal by Discharge 4 METS -Comments Brown is interested in finding out about home exercise program. [Nutrition] [Hyperlipidemia] -Hyperlipidemia Yes -Are lab results available Yes -Lipid Draw Date 06/02/22 -Total Cholesterol 278 -LDL 187 -HDL 20 -Tryglycerides 359 [Diabetes] -Diabetes Yes -Diabetes Type 2 -Fasting Glucose 90 -Date 12/02/22 -Monitors Glucose Yes -Frequency 3 [Weight Management] -Height 5 ft 6 in -Weight 79.1 kg -Recommended Diet Diabetic, low fat/sodium -Comments Sleeps during the day. Aunt assists with shopping. His goal is to have less processed food. He is working with MD to get Shelly Monitoring; he does not feel Dexcom is accurate. He does use a Glucometer at this time. Snack given prior to exercise due to BS of 90 before coming in and not eating since last PM. He will bring Glucometer to next sessions. [Drug/Alchohol Use] -Drug/Alcohol Use No -Comment Denies alcohol use [Nutritional Screen (Rate Your Plate)] -Score 55 -Interpretation of Score Can improve on diet choices -Comments First goal is to have less processed food, and lower sodium. He sleeps a lot during the day [Nutrition Plan] [Intervention] -Referral(s) Nutrition Brochures [Nutrition Education] -Nutrition Education Diabetes and excercise, Hydration, Nutrition, Reading food labels,Signs and symptoms of Hypo/Hyper- glycemia -Date Completed 12/02/22 -Initials CD -Education Summary S/S of hyper/ hypoglycemia, effect of exercise on BS discussed. He had not eaten since last PM. His BS was 90 prior to coming to rehab. [Nutrition Goals] -Goals BMI < 25, Fasting BG 80- 120 mg/dL,HDL > 40,LDL < 70, Total CHOL < 200 [Psycho/Social] -Stage of Change Action -Occupation Disabled -PHQ9 Score 21 -Interpretation of Score High -Plan of Action/Follow-up Currently works with Psychiatrist and therapist. States he has no SI of Homicidal plan. He does have Suicidal ideation at times, but no plan. States Psychiatrist and therapist aware. Expresses he would not act on thoughts. PHq9 to be faxed to PCP -Comments Stress does effect his lifestyle choices. -Patient Self-Reports Depression Yes -Family Support Lives alone -Comments Aunt lives upstairs [Psycho/Social Plan] [Intervention] -Referral(s) No consult needed [Psycho/Social Education] -Psycho/Social Education Advanced directives, Coping techniques, Depression and CAD,Positive support system, Relaxation Techniques, Reviewed PHQ9 Score w/pt, Sexuality and CAD,Signs and symptoms of CAD ,Stress management -Date Completed 12/02/22 -Initials CD -Education Summary PHQ 9,s/s, support system discussed. Mother a year ago and has been having difficulty coping with loss. [Psycho/Social Goals] -Goals Improve depressive symptoms [Other Core Comp] [Risk Factors] -Risk Factors Diabetes, Dyslipidemia, Family History of CAD, Hypertension, Obesity, Physical Inactivity, Tobacco Use -Comments: Written information given. Risk Factor modification and relation to CAD discussed. He states understanding. [Hypertension] -Hypertention Yes -Resting BP: 80/48 [Tobacco Use] -Tobacco use type Cigarette -Smoking packs per day 1 -Years smoked 25 -Patient Interested in Nicotine Yes Replacement -Smoking Quit Date NA-States he has cut down but not ready to quit -Exposure to secondhand smoke No -Comments Has Nicotine Patch but continues to smoke. He has decreased from 4 PPD to 1 PPD. [Heart Failure] -Heart Failure Yes -EF% 20 -Dyspnea at Rest No -Dyspnea with Exercise No -Last Hospitalization With [place]/Stent [Other Core Comp Plan] [Intervention] -Referral(s) Recognizing Stressors,Self Monitoring BP, Stress Management, Tobacco Brochure [Other Core Comp Education] -Other Core Comp Education Medication compliance,Risk factor modifications, Smoking and CAD -Date Completed 12/02/22 -Initials CD [Other Core Comp Goals] -Goals Manage risk factors,Manage signs and symptoms of CHF ,Resting BP < 130/80,Tobacco cessation -Comments CHF, smoking cessation discussed. Brochure on smoking cessation given . Expresses importance of risk modification. [Medication Plan] [Intervention] -Medications Tylenol 500MG every 8 HRS PRN Albuterol 90MCG every 4 HRS PRN Cough, Wheeze Baby ASA 381MG Daily Coreg 25MG BID BID Colchicine-0. 6MG BID Dapagliflozin Propanediol- 10mg Daily Trulicity-3MG/0 .5ML-3MG every 7 Days Lexapro-20MG and 10MG Tablet Daily Nexium 40MG BID Zetia 10MG Daily Flonase 50MCG/ ACT 2 Sprays in each Nostril Daily Fiasp Flex Touch-100unit/ ML-Sliding Scale 2-6units 3x daily at meals Lanjavius Rangelreinaldoar -30 units at [id number] reports 20 units) Nicoderm Patch- Transdermal Patch every 24 HRS Klonpin-0.5MG BID KLOR-CON 20MEQ Packet-Daily Crestor-20MG Tablet Sacubitril- Valsartan 24- 26MG Tab BID Ticagrelor 90MG BID Zanaflex 4MG TAB every 8 HRS . PRN Muscle Spasm Anoro-Elipta 62 .5-25-1 Puff Daily -Compliance Patient reports compliance w/ prescribed meds [Medication Education] -Education Importance of medication compliance, Medication purpose, Medication schedule, Medication side effects -Date Completed 12/02/22 -Initials CD -Education Summary Either he or Aunt clam picker medication. He brought a list of medications and reason(s) for medications . [Medication Goals] -Goals Adherence to medication compliance -Comments States no issue . Maria Luz is now 20 units [Treatment Times] -Rehab Services with ECG Monitor -Time 1315 -End Time 1435 -Visit Duration 80
[2022-12-28 07:20] VITALS: BP 80/48; BMI 28.1
--- NOTE | 2022-12-28 07:51 | MHC.CR.ITR ---
Cardiac Rehab Reassessment/ITP Cardiac Rehab Reassessment/ITP Start: 12/02/22 07:02 Freq: Status: Active Protocol: Activity Type Activity Date Activity User E-sign Co-sign Detail Recorded Client Recorded Date Recorded By Document 12/28/22 07:20 FLO [id number] 12/28/22 07:51 FLO 12/28/22 07:20 Cardiac Rehab Reassessment/ITP [Exercise] -Sales Analyst Required No -Progress Note Type 30-Day Note -Total Sessions Attended 9 -Comments + Ischemic Cardiomyopathy, Also history of Esophagitis, current smoker . Chava has attended 9 sessions. MAX METS is 3; exercise time at last session was 42 minutes . His BP runs on the low side but has been stable. BS has been stable; he eats prior to coming to class . States he has good and bad days with smoking. Chava expresses that he has Nicotine Patches at home if he decides to use them. [Functional Assessment] -ECG Summary SR-ST -Home-Based Rehab Pt approved for home-based exercise -Fall Risk No [Exercise Plan] [Intervention] -Exercise Prescription NuStep, Recumbent Bike, Recumbent Elliptical, Rower,Treadmill ,UBE,Upright Bike,Weights -Duration Intensity 36 Sessions -Exercise Minutes/Day 42 -Exercise Days/Week 3 -Angina with Exercise No -Peak METs 3 [Home Exercise] -Mode Bands -Frequency 2 Days -Intensity Light -Comments He is using bands at home. A walking program has been discussed. He sleeps during the day. [Exercise Education] -Exercise Education Exercise orientation, Exercise safety ,Home exercise, RPE,Signs and symptoms,Warmup /cooldown -Date Completed 12/02/22 -Initials CD -Education Summary Exercise guidelines, RPE , Safety, Warm Up/Cool Down, S /S to report discussed by RN and brick and tile making machine operator. Oriented to the gym. 12/28/22- Attended exercise guideline class . [Exercise Goals] -Exercise Most Days of the Week Yes -Exercise 30-45 mins/day Yes -Target HR Range +20 - +30 beats above resting -Target RPE range 11-13 -Increase METS next 30 days 0.5-1.0 METS Every two weeks -METs goal by Discharge 4 METS -Comments Chava is interested in finding out about home exercise program. [Nutrition] [Hyperlipidemia] -Are lab results available Yes -Hyperlipidemia Yes [Diabetes] -Diabetes Yes -Diabetes Type 2 -Fasting Glucose 90 -Date 12/02/22 -Comments BS have been [id number] before class. He eats before attending class (he sleeps late ) [Weight Management] -Weight 79.1 kg -BMI 28.14 -Comments Sleeps during the day. Aunt assists with shopping. His goal is to have less processed food. He is working with MD to get Shelly Monitoring; he does not feel Dexcom is accurate. He does use a Glucometer at this time. Snack given prior to exercise due to BS of 90 before coming in and not eating since last PM. He will bring Glucometer to next sessions. 12/28/22-Weight essentially the same at 79.4 KG [Drug/Alchohol Use] -Drug/Alcohol Use No -Comment Denies alcohol use [Nutrition Plan] [Intervention] -Attended Nutrition Brochures [Nutrition Education] -Nutrition Education Diabetes and excercise, Hydration, Nutrition, Reading food labels,Signs and symptoms of Hypo/Hyper- glycemia -Date Completed 12/02/22 -Initials CD -Education Summary S/S of hyper/ hypoglycemia, effect of exercise on BS discussed. He had not eaten since last PM. His BS was 90 prior to coming to rehab. [Nutrition Goals] -Goals BMI < 25, Fasting BG 80- 120 mg/dL,HDL > 40,LDL < 70, Total CHOL < 200 -Comments No goal at this time [Psycho/Social] -Stage of Change Action -Occupation Disabled -PHQ9 Score 21 -Interpretation of Score High -Plan of Action/Follow-up Currently works with Psychiatrist and therapist. States he has no SI of Homicidal plan. He does have Suicidal ideation at times, but no plan. States Psychiatrist and therapist aware. Expresses he would not act on thoughts. PHq9 to be faxed to PCP 12/28/22-PHQ9 was faxed to PCP. Chava consistently attends Cardiac Rehab, and the educational sessions. -Patient Self-Reports Depression Yes -Comments Stress does effect his lifestyle choices. [Psycho/Social Plan] [Intervention] -Attended No consult needed [Psycho/Social Education] -Psycho/Social Education Advanced directives, Coping techniques, Depression and CAD,Positive support system, Relaxation Techniques, Reviewed PHQ9 Score w/pt, Sexuality and CAD,Signs and symptoms of CAD ,Stress management -Date Completed 12/02/22 -Initials CD -Education Summary PHQ 9,s/s, support system discussed. Mother a year ago and has been having difficulty coping with loss. 12/28/22-Chava attended class on depression, coping, relaxation. He works with a therapist. [Psycho/Social Goals] -Goals Improve depressive symptoms [Other Core Comp] [Hypertension] -Hypertention Yes -Resting BP: 80/48 -Comments 12/28/22-BP continues to run 82/60 at rest and 98-105 with exercise. No CV symptoms . [Tobacco Use] -Comments Has Nicotine Patch but continues to smoke. He has decreased from 4 PPD to 1 PPD. 12/28/22 - As above. States he has good and bad smoking days. [Heart Failure] -Heart Failure Yes -Dyspnea at Rest No -Dyspnea with Exercise No -Comments 12/28/22-No S/S of CHF. [Other Core Comp Plan] [Intervention] -Attended Recognizing Stressors,Self Monitoring BP, Stress Management, Tobacco Brochure [Other Core Comp Education] -Other Core Comp Education Medication compliance,Risk factor modifications, Smoking and CAD -Date Completed 12/02/22 -Initials CD -Education Summary 12/28 -Has attended classes on exercise guidelines, diet, and depression, coping/ relaxation techniques. [Other Core Comp Goals] -Goals Manage risk factors,Manage signs and symptoms of CHF ,Resting BP < 130/80,Tobacco cessation -Comments CHF, smoking cessation discussed. Brochure on smoking cessation given . Expresses importance of risk modification. [Medication Plan] [Intervention] -Medications Per LSI- Acetaminophen 1000MG every 8 HRS PRN Albuterol-2 puffs every 4 HRS. PRN Bfdcu-Iuodiw-8 puff daily Baby ASA Daily Colchicine-0. 6MG Daily COREG 25MG BID Dapagliflozin Propanediol 10MG Daily Fiasp-2-6 units sliding scale with meals FLonase-2 sprays e/ nostril daily Glucose 4 TABS PRN Hypoglycemia Klonopin-0.5MG 2 times daily Lantus 30 units HS daily( states he takes 20 units) Lexapro-30MG Daily Metoprolol-75MG -1.5Tabs Daily Nexium 40MG BID Rosuvastatin- 20MG Daily Entresto-24- 26MG BID Ticagrelor-90MG BID Tizanidine-4MG every 8 HRS. PRN Trulicity-3MG Weekly Zetia-10MG Daily -Compliance Patient reports compliance w/ prescribed meds [Medication Education] -Education Importance of medication compliance, Medication purpose, Medication schedule, Medication side effects -Date Completed 12/02/22 -Initials CD -Education Summary Either he or Aunt order picker medication. He brought a list of medications and reason(s) for medications . 12/28/22-No change in medications per patient. [Medication Goals] -Goals Adherence to medication compliance -Comments States no issue . Lantus is now 20 units
[2023-01-25 07:09] VITALS: BP 80/48; BMI 28.1
--- NOTE | 2023-01-25 07:40 | MHC.CR.ITR ---
[address] [phone] F: [phone] Please see additional notes from [facility] Reassessment/ITP Cardiac Rehab Reassessment/ITP Start: 12/02/22 07:02 Freq: Status: Active Protocol: Activity Type Activity Date Activity User E-sign Co-sign Detail Recorded Client Recorded Date Recorded By Document 01/25/23 07:09 FLO [id number] 01/25/23 07:40 FLO 01/25/23 07:09 Cardiac Rehab Reassessment/ITP [Exercise] -Clinical Documentation Specialist Required No -Preferred Language Irish -Progress Note Type 60-Day Note -Total Sessions Attended 18 -Comments + Ischemic Cardiomyopathy, Also history of Esophagitis, current smoker . Brown has attended 9 sessions. MAX METS is 3; exercise time at last session was 42 minutes . His BP runs on the low side but has been stable. BS has been stable; he eats prior to coming to class . States he has good and bad days with smoking. Brown expresses that he has Nicotine Patches at home if he decides to use them. [Functional Assessment] -ECG Summary SR-ST -Home-Based Rehab Pt approved for home-based exercise -Comments 01/25/23-Brown has attended the education class on home exercise and safety. Due to Agoraphobia his activity is mainly in his home. -Fall Risk No [Exercise Plan] [Intervention] -Exercise Prescription NuStep, Recumbent Bike, Recumbent Elliptical, Rower,Treadmill ,UBE,Upright Bike,Weights -Duration Intensity 36 Sessions -Exercise Minutes/Day 42 -Exercise Days/Week 3 -Angina with Exercise No -Peak METs 3 [Home Exercise] -Mode Bands -Frequency 2 Days -Intensity Light -Comments He is using bands at home. A walking program has been discussed. He sleeps during the day. [Exercise Education] -Exercise Education Exercise orientation, Exercise safety ,Home exercise, RPE,Signs and symptoms,Warmup /cooldown -Date Completed 12/02/22 -Initials CD -Education Summary Exercise guidelines, RPE , Safety, Warm Up/Cool Down, S /S to report discussed by RN and sand cutter operator. Oriented to the gym. 12/28/22- Attended exercise guideline class . [Exercise Goals] -Exercise Most Days of the Week Yes -Exercise 30-45 mins/day Yes -Target HR Range +20 - +30 beats above resting -Target RPE range 11-13 -Increase METS next 30 days 0.5-1.0 METS Every two weeks -METs goal by Discharge 4 METS -Comments 01/25/23-As above. Brown expresses that he is comfortable at present exercise intensity/time. [Nutrition] [Hyperlipidemia] -Are lab results available Yes -Hyperlipidemia Yes -Comments 01/25/24- Attended class on nutrition and risk factors; encouraged to follow Lipid Profile with MD . [Diabetes] -Diabetes Yes -Diabetes Type 2 -Fasting Glucose 90 -Date 12/02/22 -Comments BS have been [id number] before class. He eats before attending class (he sleeps late ) 01/25/23-BS 125 for last session. BS has been WNL. Brown sleeps late and eats prior to class. States he has an Endo appointment coming up but is unsure of date. He hopes to get a Shelly system. [Weight Management] -Weight 79.1 kg -BMI 28.14 -Comments Sleeps during the day. Aunt assists with shopping. His goal is to have less processed food. He is working with MD to get Shelly Monitoring; he does not feel Dexcom is accurate. He does use a Glucometer at this time. Snack given prior to exercise due to BS of 90 before coming in and not eating since last PM. He will bring Glucometer to next sessions. 12/28/22-Weight essentially the same at 79.4 KG 01/25/23-Weight staying at 29. 4KG [Drug/Alchohol Use] -Drug/Alcohol Use No -Comment Denies alcohol use [Nutrition Plan] [Intervention] -Attended Nutrition Brochures [Nutrition Education] -Nutrition Education Diabetes and excercise, Hydration, Nutrition, Reading food labels,Signs and symptoms of Hypo/Hyper- glycemia -Date Completed 12/02/22 -Initials CD -Education Summary S/S of hyper/ hypoglycemia, effect of exercise on BS discussed. He had not eaten since last PM. His BS was 90 prior to coming to rehab. [Nutrition Goals] -Goals BMI < 25, Fasting BG 80- 120 mg/dL,HDL > 40,LDL < 70, Total CHOL < 200 -Comments No goal at this time 01/25/24- Maintaining weight [Psycho/Social] -Stage of Change Action -Occupation Disabled -PHQ9 Score 21 -Interpretation of Score High -Plan of Action/Follow-up Currently works with Psychiatrist and therapist. States he has no SI of Homicidal plan. He does have Suicidal ideation at times, but no plan. States Psychiatrist and therapist aware. Expresses he would not act on thoughts. PHq9 to be faxed to PCP 12/28/22-PHQ9 was faxed to PCP. Brown consistently attends Cardiac Rehab, and the educational sessions. 01/25/23-As above. Brown is consistent in his Cardiac Rehab attendence -Patient Self-Reports Depression Yes -Comments Stress does effect his lifestyle choices. 01/25/23-As above. Brown has Psychiatric support. States he sleeps to reduce stress. [Psycho/Social Plan] [Intervention] -Attended No consult needed [Psycho/Social Education] -Psycho/Social Education Advanced directives, Coping techniques, Depression and CAD,Positive support system, Relaxation Techniques, Reviewed PHQ9 Score w/pt, Sexuality and CAD,Signs and symptoms of CAD ,Stress management -Date Completed 12/02/22 -Initials CD -Education Summary PHQ 9,s/s, support system discussed. Mother a year ago and has been having difficulty coping with loss. 12/28/22-Brown attended class on depression, coping, relaxation. He works with a therapist. 01/25/23-The above have been reviewed with Brown. He has attended the educational sessions at cardiac rehab. States his smoking amount is up and down , but has decreased from 4 PPD to 2PPD or less. [Psycho/Social Goals] -Goals Improve depressive symptoms -Comments Brown is consistent with Cardiac Rehab and education sessions attendance. [Other Core Comp] [Hypertension] -Hypertention Yes -Resting BP: 80/48 -Comments 12/28/22-BP continues to run 82/60 at rest and 98-105 with exercise. No CV symptoms . 01/25/23-BP 86/ 50 at rest and 96/42 with exercise at last session. [Tobacco Use] -Tejas Has Nicotine Patch but continues to smoke. He has decreased from 4 PPD to 1 PPD. 12/28/22 - As above. States he has good and bad smoking days. 01/25/23-As above. He is not interested in Nicotine Patch(states has many at home) or coming up with a plan for smoking cessation at this time. [Heart Failure] -Heart Failure Yes -Dyspnea at Rest No -Dyspnea with Exercise No -Comments 12/28/22-No S/S of CHF. 01/25/23-No S/S of CHF [Other Core Comp Plan] [Intervention] -Attended Recognizing Stressors,Self Monitoring BP, Stress Management, Tobacco Brochure [Other Core Comp Education] -Other Core Comp Education Medication compliance,Risk factor modifications, Smoking and CAD ,Understanding hypertension -Date Completed 12/02/22 -Initials CD -Education Summary 12/28 -Has attended classes on exercise guidelines, diet, and depression, coping/ relaxation techniques. 01/25/23-No issues with medication. Brown attended cardiac rehab class on Medication Compliance, HTN , Nutrition, risk factor modification. No questions offered. [Other Core Comp Goals] -Goals Manage risk factors,Manage signs and symptoms of CHF ,Resting BP < 130/80,Tobacco cessation -Comments CHF, smoking cessation discussed. Brochure on smoking cessation given . Expresses importance of risk modification. 01/25/23-VSS. No CV symptoms, s/s of CHF. Smoking as noted above. [Medication Plan] [Intervention] -Medications Per [facility]- Acetaminophen 1000MG every 8 HRS PRN Albuterol-2 puffs every 4 HRS. PRN Qauih-Stldye-4 puff daily Baby ASA Daily Colchicine-0. 6MG Daily COREG 25MG BID Dapagliflozin Propanediol 10MG Daily Fiasp-2-6 units sliding scale with meals FLonase-2 sprays e/ nostril daily Glucose 4 TABS PRN Hypoglycemia Klonopin-0.5MG 2 times daily Lantus 30 units HS daily( states he takes 20 units) Lexapro-30MG Daily Metoprolol-75MG -1.5Tabs Daily Nexium 40MG BID Rosuvastatin- 20MG Daily Entresto-24- 26MG BID Ticagrelor-90MG BID Tizanidine-4MG every 8 HRS. PRN Trulicity-3MG Weekly Zetia-10MG Daily -Compliance Patient reports compliance w/ prescribed meds [Medication Education] -Education Importance of medication compliance, Medication purpose, Medication schedule, Medication side effects -Date Completed 12/02/22 -Initials CD -Education Summary Either he or Aunt order picker medication. He brought a list of medications and reason(s) for medications . 12/28/22-No change in medications per patient. 01/25/23-No changes. He takes medications when he gets up in the late AM . [Medication Goals] -Goals Adherence to medication compliance -Comments States no issue . Maria Luz is now 20 units 01/25/23-No changes when asked. DG AMAYAL
[2023-02-21 15:41] VITALS: BP 80/48; BMI 28.1
--- NOTE | 2023-02-21 15:58 | MHC.CR.ITR ---
[address] [phone] F: [phone] Please see additional notes from [facility] Card[facility] Reassessment/ITP Cardiac Rehab Reassessment/ITP Start: 12/02/22 07:02 Freq: Status: Active Protocol: Activity Type Activity Date Activity User E-sign Co-sign Detail Recorded Client Recorded Date Recorded By Document 02/21/23 15:41 NATALIA [id number] 02/21/23 15:56 NATALIA 02/21/23 15:41 Cardiac Rehab Reassessment/ITP [Exercise] -Retail Advertising Sales Manager Required No -Preferred Language Taiwanese -Progress Note Type 90-Day Note -Comments + Ischemic Cardiomyopathy, Also history of Esophagitis, current smoker . Brown has attended 9 sessions. MAX METS is 3; exercise time at last session was 42 minutes . His BP runs on the low side but has been stable. BS has been stable; he eats prior to coming to class . States he has good and bad days with smoking. Brown expresses that he has Nicotine Patches at home if he decides to use them. 90 Day Assessment: Pt has participated in 25 sessions of CR so far and has accomplished achieving max MET of 2.7 He is fairly consistent with attendance. Someitmes he is affected by his back pain. He has chronic sciatica. [Functional Assessment] -ECG Summary SR-ST -Home-Based Rehab Pt approved for home-based exercise -Comments 01/25/23-Brown has attended the education class on home exercise and safety. Due to Agoraphobia his activity is mainly in his home. 90 Day: Continues to demonstrate safety with ex and is doing sit to stands for ex at home. He doesn't walk outside due to agoraphobia. -Fall Risk No [Exercise Plan] [Intervention] -Exercise Prescription NuStep, Recumbent Bike, Recumbent Elliptical, Rower,Treadmill ,UBE,Upright Bike,Weights -Duration Intensity 36 Sessions -Exercise Minutes/Day 45 -Exercise Days/Week 3 -Angina with Exercise No -Peak METs 2.7 [Home Exercise] -Mode Bands -Frequency 2 Days -Intensity Light -Comments He is using bands at home. A walking program has been discussed. He sleeps during the day. Doing sit to stand ex now at home 11/20/ 2023 [Exercise Education] -Exercise Education Exercise orientation, Exercise safety ,Home exercise, RPE,Signs and symptoms,Warmup /cooldown -Date Completed 12/02/22 -Initials CD -Education Summary Exercise guidelines, RPE , Safety, Warm Up/Cool Down, S /S to report discussed by RN and global head advertiser solutions. Oriented to the gym. 12/28/22- Attended exercise guideline class . [Exercise Goals] -Exercise Most Days of the Week Yes -Exercise 30-45 mins/day Yes -Target HR Range +20 - +30 beats above resting -Target RPE range 11-13 -Increase METS next 30 days 0.5-1.0 METS Every two weeks -METs goal by Discharge 4 METS -Comments 01/25/23-As above. Brown expresses that he is comfortable at present exercise intensity/time. 90 Day: will work toward achieving 4 mets. [Nutrition] [Hyperlipidemia] -Are lab results available Yes -Hyperlipidemia Yes -Comments 01/25/24- Attended class on nutrition and risk factors; encouraged to follow Lipid Profile with MD . Encouraged to eat diet that will improve cholesterol. [Diabetes] -Diabetes Yes -Diabetes Type 2 -Fasting Glucose 90 -Date 12/02/22 -Comments BS have been [id number] before class. He eats before attending class (he sleeps late ) 01/25/23-BS 125 for last session. BS has been WNL. Brown sleeps late and eats prior to class. States he has an Endo appointment coming up but is unsure of date. He hopes to get a Shelly system. 02/21/2023: BS have been on higher side. Still need to work on better control of BS. [Weight Management] -Weight 79.1 kg -BMI 28.14 -Comments Sleeps during the day. Aunt assists with shopping. His goal is to have less processed food. He is working with MD to get Shelly Monitoring; he does not feel Dexcom is accurate. He does use a Glucometer at this time. Snack given prior to exercise due to BS of 90 before coming in and not eating since last PM. He will bring Glucometer to next sessions. 12/28/22-Weight essentially the same at 79.4 KG No change in wt at 90 Day assessment. 01/25/23-Weight staying at 29. 4KG [Drug/Alchohol Use] -Drug/Alcohol Use No -Comment Denies alcohol use [Nutrition Plan] [Intervention] -Attended Nutrition Brochures [Nutrition Education] -Nutrition Education Diabetes and excercise, Hydration, Nutrition, Reading food labels,Signs and symptoms of Hypo/Hyper- glycemia -Date Completed 12/02/22 -Initials CD -Education Summary S/S of hyper/ hypoglycemia, effect of exercise on BS discussed. He had not eaten since last PM. His BS was 90 prior to coming to rehab. [Nutrition Goals] -Goals BMI < 25, Fasting BG 80- 120 mg/dL,HDL > 40,LDL < 70, Total CHOL < 200 -Comments No goal at this time 01/25/24- Maintaining weight [Psycho/Social] -Stage of Change Action -Occupation Disabled -PHQ9 Score 21 -Interpretation of Score High -Plan of Action/Follow-up Currently works with Psychiatrist and therapist. States he has no SI of Homicidal plan. He does have Suicidal ideation at times, but no plan. States Psychiatrist and therapist aware. Expresses he would not act on thoughts. PHq9 to be faxed to PCP 12/28/22-PHQ9 was faxed to PCP. Brown consistently attends Cardiac Rehab, and the educational sessions. 01/25/23-As above. Brown is consistent in his Cardiac Rehab attendence -Patient Self-Reports Depression Yes -Comments Stress does effect his lifestyle choices. 01/25/23-As above. Brown has Psychiatric support. States he sleeps to reduce stress. No increased is stress noted or reported. . 02/21/2023 Brown has verbalized that he prioritizes his CR and makes she he attends. He understands the importance . He does even participate in group warm up and educational sessions. [Psycho/Social Plan] [Intervention] -Attended No consult needed [Psycho/Social Education] -Psycho/Social Education Advanced directives, Coping techniques, Depression and CAD,Positive support system, Relaxation Techniques, Reviewed PHQ9 Score w/pt, Sexuality and CAD,Signs and symptoms of CAD ,Stress management -Date Completed 12/02/22 -Initials CD -Education Summary PHQ 9,s/s, support system discussed. Mother a year ago and has been having difficulty coping with loss. 12/28/22-Brown attended class on depression, coping, relaxation. He works with a therapist. 01/25/23-The above have been reviewed with Brown. He has attended the educational sessions at cardiac rehab. States his smoking amount is up and down , but has decreased from 4 PPD to 2PPD or less. 02/21/2023 Brown has 2 cats that help with coping. He refers to one cat as a cat Dog because it acts like a dog sometimes. [Psycho/Social Goals] -Goals Improve depressive symptoms -Comments Brown is consistent with Cardiac Rehab and education sessions attendance. [Other Core Comp] [Hypertension] -Hypertention Yes -Resting BP: 80/48 -Comments 12/28/22-BP continues to run 82/60 at rest and 98-105 with exercise. No CV symptoms . 01/25/23-BP 86/ 50 at rest and 96/42 with exercise at last session. [Tobacco Use] -Tejas Has Nicotine Patch but continues to smoke. He has decreased from 4 PPD to 1 PPD. 12/28/22 - As above. States he has good and bad smoking days. 01/25/23-As above. He is not interested in Nicotine Patch(states has many at home) or coming up with a plan for smoking cessation at this time. [Heart Failure] -Heart Failure Yes -Dyspnea at Rest No -Dyspnea with Exercise No -Comments 12/28/22-No S/S of CHF. 01/25/23-No S/S of CHF [Other Core Comp Plan] [Intervention] -Attended Recognizing Stressors,Self Monitoring BP, Stress Management, Tobacco Brochure [Other Core Comp Education] -Other Core Comp Education Medication compliance,Risk factor modifications, Smoking and CAD ,Understanding hypertension -Date Completed 12/02/22 -Initials CD -Education Summary 12/28 -Has attended classes on exercise guidelines, diet, and depression, coping/ relaxation techniques. 01/25/23-No issues with medication. Brown attended cardiac rehab class on Medication Compliance, HTN , Nutrition, risk factor modification. No questions offered. Day: Brown is not ready to give up smoking yet. When he is , he says he has everything he needs. [Other Core Comp Goals] -Goals Manage risk factors,Manage signs and symptoms of CHF ,Resting BP < 130/80,Tobacco cessation -Comments CHF, smoking cessation discussed. Brochure on smoking cessation given . Expresses importance of risk modification. 01/25/23-VSS. No CV symptoms, s/s of CHF. Smoking as noted above. 02/21/2023 Risk factor modification education was given lst week during in session. Brown participated in answering questions. [Medication Plan] [Intervention] -Medications Per [facility]- Acetaminophen 1000MG every 8 HRS PRN Albuterol-2 puffs every 4 HRS. PRN Dsolz-Iqjvnr-2 puff daily Baby ASA Daily Colchicine-0. 6MG Daily COREG 25MG BID Dapagliflozin Propanediol 10MG Daily Fiasp-2-6 units sliding scale with meals FLonase-2 sprays e/ nostril daily Glucose 4 TABS PRN Hypoglycemia Klonopin-0.5MG 2 times daily Lantus 30 units HS daily( states he takes 20 units) Lexapro-30MG Daily Metoprolol-75MG -1.5Tabs Daily Nexium 40MG BID Rosuvastatin- 20MG Daily Entresto-24- 26MG BID Ticagrelor-90MG BID Tizanidine-4MG every 8 HRS. PRN Trulicity-3MG Weekly Zetia-10MG Daily -Compliance Patient reports compliance w/ prescribed meds [Medication Education] -Education Importance of medication compliance, Medication purpose, Medication schedule, Medication side effects -Date Completed 12/02/22 -Initials CD -Education Summary Either he or Aunt berry picker medication. He brought a list of medications and reason(s) for medications . 12/28/22-No change in medications per patient. 01/25/23-No changes. He takes medications when he gets up in the late AM . [Medication Goals] -Goals Adherence to medication compliance -Comments States no issue . Lantus is now 20 units 01/25/23-No changes when asked. BS WNL
[2023-03-21 07:47] VITALS: BP 80/48; BP 84/48; BMI 28.1
--- NOTE | 2023-03-21 08:14 | MHC.CR.ITD ---
[address] [phone] F: [phone] Please see additional notes from [facility] Discharge/ITP Cardiac Rehab Discharge/ITP Start: 12/02/22 07:02 Freq: Status: Active Protocol: Activity Type Activity Date Activity User E-sign Co-sign Detail Recorded Client Recorded Date Recorded By Document 03/21/23 07:47 FLO [id number] 03/21/23 08:14 [email or web address] 03/21/23 07:47 Cardiac Rehab Discharge/ITP [Exercise] -Spiritual Minister Required No -Preferred Language Uzbek -Comments + Ischemic Cardiomyopathy, Also history of Esophagitis, current smoker . Brown has attended 9 sessions. MAX METS is 3; exercise time at last session was 42 minutes . His BP runs on the low side but has been stable. BS has been stable; he eats prior to coming to class . States he has good and bad days with smoking. Brown expresses that he has Nicotine Patches at home if he decides to use them. 90 Day Assessment: Pt has participated in 25 sessions of CR so far and has accomplished achieving max MET of 2.7 He is fairly consistent with attendance. Sometimes he is affected by his back pain. He has chronic sciatica. Discharge: Brown completed 25 sessions of cardiac rehab. He stopped coming after the 25 sessions and has not returned phone calls. VS were stable. Tel. SR -ST. Brown attended all educational sessions. He works with Endo and Psychiatry . He was in the process of obtaining a new CGM. His BS fluctuated. His last visit he had a BS of 308 starting and 282 when rechecked. He usually slept until class time. His MD was made aware of his initial PHQ9 score. His initial Rate a Plate was a score of 55( some changes could be made). He has reduced his smoking but does not feel ready to quit. Stated he has Nicotine Patches at home if he decides to quit. MAX METS 2.6 with an exercise time of 48 minutes. Brown was consistent in his participation until his last visit on 02/18. He attended all the educational sessions. Last VS were Resting 80/54 and 108/ 58 with exercise. Post assessments were unable to be completed due to finishing without notice. [Functional Assessment] -6 Min Walk (distance in ft) 800 -METS Achieved 2.16 -Resting HR 88 -Resting BP 80/48 -Resting SpO2 98 -Exercise HR 101 -Exercise BP 84/48 -RPE 11 -ECG Summary SR-ST -Fall Risk No [Exercise Plan] [Intervention] -Exercise Prescription NuStep, Recumbent Bike, Recumbent Elliptical, Rower,Treadmill ,UBE,Upright Bike,Weights -Duration Intensity 36 Sessions -Exercise Minutes/Day 45 -Exercise Days/Week 3 -Angina with Exercise No -Peak METs 2.7 [Home Exercise] -Mode Bands -Frequency 2 Days -Intensity Light -Comments He is using bands at home. A walking program has been discussed. He sleeps during the day. Doing sit to stand ex now at home 2022 [Exercise Education] -Exercise Education Exercise orientation, Exercise safety ,Home exercise, RPE,Signs and symptoms,Warmup /cooldown -Date Completed 12/02/22 -Initials CD -Education Summary Exercise guidelines, RPE , Safety, Warm Up/Cool Down, S /S to report discussed by RN and stage set up worker. Oriented to the gym. 12/28/22- Attended exercise guideline class . Discharge- Attended all educational sessions. He denied symptoms when asked. Brown felt comfortable at the exercise level he was at . He had some increase in his level of exercise with encouragement. [Exercise Goals] -Exercise Most Days of the Week Yes -Exercise 30-45 mins/day Yes -Target HR Range +20 - +30 beats above resting -Target RPE range 11-13 -Increase METS next 30 days 0.5-1.0 METS Every two weeks -METs goal by Discharge 4 METS -Comments Discharge: Max METS 2.6. Brown did not often respond to encouragement to increase his exercise level . He had limited activity at home. He was consistent in his attendance of exercise and educational sessions. [Nutrition] [Hyperlipidemia] -Are lab results available Yes -Hyperlipidemia Yes -Lipid Draw Date 06/02/22 -Total Cholesterol 278 -LDL 187 -HDL 20 -Tryglycerides 359 -Comments 01/25/24- Attended class on nutrition and risk factors; encouraged to follow Lipid Profile with MD . Encouraged to eat diet that will improve cholesterol. Discharge-As above. He attended risk factor, nutrition, reading food labels education. [Diabetes] -Diabetes Yes -Diabetes Type 2 -Fasting Glucose 90 -Date 12/02/22 -Comments BS have been [phone] before class. He eats before attending class (he sleeps late ) 01/25/23-BS 125 for last session. BS has been WNL. Brown sleeps late and eats prior to class. States he has an Endo appointment coming up but is unsure of date. He hopes to get a Shelly system. 02/21/2023: BS have been on higher side. Still need to work on better control of BS. Discharge: As above. Last entrance BS was 308 [Weight Management] -Weight 79.1 kg -BMI 28.14 -Comments Sleeps during the day. Aunt assists with shopping. His goal is to have less processed food. He is working with MD to get Shelly Monitoring; he does not feel Dexcom is accurate. He does use a Glucometer at this time. Snack given prior to exercise due to BS of 90 before coming in and not eating since last PM. He will bring Glucometer to next sessions. 12/28/22-Weight essentially the same at 79.4 KG No change in wt at 90 Day assessment. 01/25/23-Weight staying at 29. 4KG DIscharge- Weight without change. [Drug/Alchohol Use] -Drug/Alcohol Use No -Comment Denies alcohol use [Nutrition Plan] [Intervention] -Attended Nutrition Brochures [Nutrition Education] -Nutrition Education Diabetes and excercise, Hydration, Nutrition, Reading food labels,Signs and symptoms of Hypo/Hyper- glycemia -Date Completed 12/02/22 -Initials CD -Education Summary S/S of hyper/ hypoglycemia, effect of exercise on BS discussed. He had not eaten since last PM. His BS was 90 prior to coming to rehab. Discharge: Diabetes education and exercise were discussed throughout the program. He was encouraged to eat before class and discuss BS with MD(he slept, at times, until class in the afternon). [Nutrition Goals] -Goals BMI < 25, Fasting BG 80- 120 mg/dL,HDL > 40,LDL < 70, Total CHOL < 200 -Comments No goal at this time 01/25/24- Maintaining weight Discharge-No change [Psycho/Social] -Stage of Change Action -Occupation Disabled -PHQ9 Score 21 -Interpretation of Score High -Plan of Action/Follow-up Currently works with Psychiatrist and therapist. States he has no SI of Homicidal plan. He does have Suicidal ideation at times, but no plan. States Psychiatrist and therapist aware. Expresses he would not act on thoughts. PHq9 to be faxed to PCP 12/28/22-PHQ9 was faxed to PCP. Brown consistently attends Cardiac Rehab, and the educational sessions. 01/25/23-As above. Brown is consistent in his Cardiac Rehab attendence Discharge-Brown was consistent in his attendance until session no. 25 on 02/18. -Patient Self-Reports Depression Yes -Comments Stress does effect his lifestyle choices. 01/25/23-As above. Brown has Psychiatric support. States he sleeps to reduce stress. No increased is stress noted or reported. . 02/21/2023 Brown has verbalized that he prioritizes his CR and makes she he attends. He understands the importance . He does even participate in group warm up and educational sessions. Discharge: Brown works with Psychiatry. Expressed that he likes to sleep for relaxaxtion. [Psycho/Social Plan] [Intervention] -Attended No consult needed [Psycho/Social Education] -Psycho/Social Education Advanced directives, Coping techniques, Depression and CAD,Positive support system, Relaxation Techniques, Reviewed PHQ9 Score w/pt, Sexuality and CAD,Signs and symptoms of CAD ,Stress management -Date Completed 12/02/22 -Initials CD -Education Summary PHQ 9,s/s, support system discussed. Mother a year ago and has been having difficulty coping with loss. 12/28/22-Brown attended class on depression, coping, relaxation. He works with a therapist. 01/25/23-The above have been reviewed with Brown. He has attended the educational sessions at cardiac rehab. States his smoking amount is up and down , but has decreased from 4 PPD to 2PPD or less. 02/21/2023 Brown has 2 cats that help with coping. He refers to one cat as a cat Dog because it acts like a dog sometimes. Discharge-No change [Psycho/Social Goals] -Goals Improve depressive symptoms -Comments Brown is consistent with Cardiac Rehab and education sessions attendance. [Other Core Comp] [Hypertension] -Hypertention Yes -Resting BP: 80/48 -Comments 12/28/22-BP continues to run 82/60 at rest and 98-105 with exercise. No CV symptoms . 01/25/23-BP 86/ 50 at rest and 96/42 with exercise at last session. Discharge-BP 80 /54 at rest [Tobacco Use] -Tejas Has Nicotine Patch but continues to smoke. He has decreased from 4 PPD to 1 PPD. 12/28/22 - As above. States he has good and bad smoking days. 01/25/23-As above. He is not interested in Nicotine Patch(states has many at home) or coming up with a plan for smoking cessation at this time. DIscharge- Continued to not be interested in smoking cessation. He had decreased to approximately 1 pack from 4 packs/day [Heart Failure] -Dyspnea at Rest No -Dyspnea with Exercise No -Comments 12/28/22-No S/S of CHF. 01/25/23-No S/S of CHF Discharge-Brown had no S/S of CHF while in the program. [Other Core Comp Plan] [Intervention] -Attended Recognizing Stressors,Self Monitoring BP, Stress Management, Tobacco Brochure [Other Core Comp Education] -Other Core Comp Education Medication compliance,Risk factor modifications, Smoking and CAD ,Understanding hypertension -Date Completed 12/02/22 -Initials CD -Education Summary 12/28 -Has attended classes on exercise guidelines, diet, and depression, coping/ relaxation techniques. 01/25/23-No issues with medication. Brown attended cardiac rehab class on Medication Compliance, HTN , Nutrition, risk factor modification. No questions offered. Day: Brown is not ready to give up smoking yet. When he is , he says he has everything he needs. Discharge-No issues. Brown attended all cardiac rehab educational sessions. He stated understanding of RF modification. [Other Core Comp Goals] -Goals Manage risk factors,Manage signs and symptoms of CHF ,Resting BP < 130/80,Tobacco cessation -Comments CHF, smoking cessation discussed. Brochure on smoking cessation given . Expresses importance of risk modification. 01/25/23-VSS. No CV symptoms, s/s of CHF. Smoking as noted above. 02/21/2023 Risk factor modification education was given lst week during in session. Brown participated in answering questions. Discharge- No s /s of CHF. He had asymptomatic BP that was on the lower side. Smoking as noted above. [Medication Plan] [Intervention] -Medications Per [facility]- Acetaminophen 1000MG every 8 HRS PRN Albuterol-2 puffs every 4 HRS. PRN Cutni-Ijxpwg-7 puff daily Baby ASA Daily Colchicine-0. 6MG Daily COREG 25MG BID Dapagliflozin Propanediol 10MG Daily Fiasp-2-6 units sliding scale with meals FLonase-2 sprays e/ nostril daily Glucose 4 TABS PRN Hypoglycemia Klonopin-0.5MG 2 times daily Lantus 30 units HS daily( states he takes 20 units) Lexapro-30MG Daily Metoprolol-75MG -1.5Tabs Daily Nexium 40MG BID Rosuvastatin- 20MG Daily Entresto-24- 26MG BID Ticagrelor-90MG BID Tizanidine-4MG every 8 HRS. PRN Trulicity-3MG Weekly Zetia-10MG Daily -Compliance Patient reports compliance w/ prescribed meds [Medication Education] -Education Importance of medication compliance, Medication purpose, Medication schedule, Medication side effects -Date Completed 12/02/22 -Initials CD -Education Summary Either he or Aunt fish bait picker medication. He brought a list of medications and reason(s) for medications . 12/28/22-No change in medications per patient. 01/25/23-No changes. He takes medications when he gets up in the late AM . Discharge: No change from . Schedule of medications discussed. [Medication Goals] -Goals Adherence to medication compliance -Comments States no issue . Lantus is now 20 units 01/25/23-No changes when asked. BS WNL Discharge-BS fluctuated while in the program. BS often WNL but did fluctuate and was elevated at his last session.
== END 2023-03-22 06:52 | disposition home or self-care (01) ==
LOC: HO.CR 13:30
PROVIDERS: PCP Internal Medicine; Visit Provider Internal Medicine Cardiovascular Disease
DX: I21.9 Acute myocardial infarction, unspecified (principal); I25.119 Atherosclerotic heart disease of native coronary artery with unspecified angina pectoris; Z98.61 Coronary angioplasty status
CPT/HCPCS: 93798

== ENCOUNTER 2023-07-22 08:25 | Outpatient (REF) | payer OTHER, SELFPAY ==
[2023-07-22 08:41] LABS: MANUAL DIFF FLAG NO
[2023-07-22 09:18] LABS: Basophils Absolute Auto 0.1 X10*3/uL (0.0-0.2); Basophils Percent Auto 0.5 % (0-2); Eosinophils Absolute Auto 0.3 X10*3/uL (0.0-0.4); Hematocrit 42.6 % (42.0-52.0); Hemoglobin 13.8 g/dl (14.0-18.0); Imm Gran Abs Auto 0.04 X10*3/uL (0.00-0.03); Imm Gran Pct Auto 0.3 % (0.0-0.4); Lymphocytes Absolute Auto 4.5 X10*3/uL (1.2-4.9); Lymphocytes Percent Auto 39.4 % (20-40); Mean Corpuscular HGB Conc 32.4 g/dl (31.0-36.0); Mean Corpuscular Hemoglobin 27.9 pg (27.0-33.0); Mean Corpuscular Volume 86.2 fL (80.0-98.0); Mean Platelet Volume 9.1 fL (9.4-12.4); Monocytes Absolute Auto 0.7 X10*3/uL (0.1-1.2); Monocytes Percent Auto 6.1 % (2-11); Neutrophils Absolute Auto 5.8 x10*3/uL (2.0-8.3); Neutrophils Percent Auto 50.7 % (45-73); Platelet Count 252 X10*3/uL (160-400); Red Blood Count 4.94 X10*6/uL (4.60-5.80); Red Cell Distribution Width 15.2 % (11.0-16.0); White Blood Count 11.5 X10*3/uL (4.8-10.8)
[2023-07-22 09:22] LABS: INTERNATIONAL NORM RATIO 0.9 (0.9-1.1); Prothrombin Time 10.6 SEC (11.1-13.3)
[2023-07-22 10:11] LABS: Anion Gap 11 (12-20); Blood Urea Nitrogen 8 mg/dL (9-16); Calcium 9.2 mg/dL (8.4-10.2); Carbon Dioxide 28 mmol/L (22-29); Chloride 101 mmol/L (96-108); Estimated Glomerular Filt Rate > 60; Glucose Random 245 mg/dL (60-115); Sodium 136 mmol/L (135-145)
== END 2023-07-22 08:26 | disposition home or self-care (01) ==
LOC: HO.LAB 08:25
PROVIDERS: PCP Internal Medicine; Visit Provider Internal Medicine Cardiovascular Disease
DX: I25.5 Ischemic cardiomyopathy (principal)
CPT/HCPCS: 36415; 80048; 85025; 85610

== ENCOUNTER 2024-02-10 12:51 | Outpatient (AMB) | payer OTHER, SELFPAY ==
--- NOTE | 2024-02-10 13:04 | HO.SPINEOV ---
Intake Visit Reasons: LBP Intake Note: Mr. Denney is here today c/o low back pain that radiates to shoulder blades. Bone Worker Required: No Allergies clindamycin Allergy (Mild, Verified 02/10/24 13:05) Rash doxycycline Allergy (Mild, Verified 02/10/24 13:05) Rash latex [LATEX] Allergy (Mild, Verified 02/10/24 13:05) SKIN IRRITATION cyclobenzaprine Adverse Reaction (Verified 02/10/24 13:05) Itching Assessment & Plan Assessment & Plan (1) Lumbago: Code(s): M54.50 - Low back pain, unspecified Category: Medical Plan Dear colleague On 02/10/2024 I saw for 2nd opinion Brown Denney with a chief complaint of back pain. HPI: This 48-year-old male developed excruciating back spasms in January 2022. Pain is located bilaterally. It does not radiate down his legs. He denies weakness or numbness. He tried all forms of conservative treatment, including physical therapy chiropractic therapy and cortisone injections. He is still waiting to get facet denervation is done. He comes in for 2nd opinion. PMH: COPD, asthma, diabetes, anxiety, depression, hypercholesterolemia, GERD, ICD Medications: Clonazepam, Lexapro, Lantus, rosuvastatin, Trulicity, fluticasone, Allergies: NKDA Social history: Smokes 2 packs a day Physical Exam: Pleasant male. Height 5'6 weight 200 lb. He is able to move in all directions without significant pain. No neurological deficits for motor sensation or reflexes. Radiological Studies: MRI done at [facility] shows basically a normal MRI with the exception of L4-5 where there is a very small disc bulge touching the exiting left L4 nerve root. Impression/Plan: This patient is suffering from chronic back pain with back spasms without radiculopathy. I reviewed the MRI imaging in detail with the patient and I showed him that his lumbar spine anatomy is of excellent quality. I also showed him the mild disc bulge and explained to him that this would produce a lumbar radiculopathy on the left side. Unfortunately, I have nothing to offer. I hope that facet denervation may give him some relief. I discharged him from further follow-up. Thank you for allowing me to participate in your patients care. total time spent was 40 minutes in counseling ,coordination of plan, personal review of imaging, surgical decision making and subsequent plan Ar Brenner MD, PhD [facility] Trained Neurosurgeon Director, [facility] Coding Level of Care Code New Pt Level 3 (99006) Diagnoses Lumbago M54.50
== END 2024-02-10 13:54 | disposition home or self-care (01) ==
PROVIDERS: PCP Internal Medicine; Referring Provider Student in an Organized Health Care Education/Training Program; Visit Provider Neurological Surgery
DX: M54.50 Low back pain, unspecified (principal)
CPT/HCPCS: 99203

== ENCOUNTER → 2024-02-10 12:51 | Outpatient (BNVA) | payer OTHER, SELFPAY | PROVIDERS: PCP Internal Medicine; Referring Provider Student in an Organized Health Care Education/Training Program; Visit Provider Neurological Surgery | DX: M54.50 Low back pain, unspecified (principal) | CPT/HCPCS: 99202 ==

== ENCOUNTER 2024-04-13 14:34 | Inpatient (IN) | payer OTHER, SELFPAY ==
[2024-04-13] VITALS (13 sets, daily range): BP systolic 69–130; BP diastolic 42–80; PULSE 47–110; RESP 16–29; TEMP 36.7–37.8; O2SAT 94–100; BMI 32.1
--- NOTE | ~2024-04-13 | XR_ITS ---
CLINICAL HISTORY: dyspnea 1 view chest x-ray Comparison: CR/SR - CHEST 2 VIEWS - 05/01/19 16:44 EST Findings: The lungs are clear. Normal size heart. No acute fracture. Left anterior chest wall pacemaker with single intact appearing lead. IMPRESSION: 1. No acute findings. This document has been electronically signed by: Carmelo Lewis MD, PHD on 04/13/2024 23:41:58
--- NOTE | ~2024-04-13 | CT_ITS ---
CLINICAL HISTORY: abd pain, hypotension CT abdomen and pelvis with contrast Comparison: CT/REG/SR - CT ABDOMEN PELVIS WO IV CON - 04/04/22 11:30 EST Findings: The lung bases are clear. There is a cardiac pacemaker. Multiple kidney cysts. No hydronephrosis. Remaining abdominal organs are unremarkable. Prior cholecystectomy. Apparent thickening of the wall of the stomach. No colitis or bowel obstruction. No pneumatosis or portal venous gas. No free fluid. Pelvic contents unremarkable. Normal appendix. No acute fracture. IMPRESSION: There is apparent thickening of the wall of the stomach. This may be secondary to underdistention but gastritis could also be considered. This document has been electronically signed by: Lori Moser MD on 04/13/2024 16:51:14
--- NOTE | 2024-04-13 15:09 | ECG_ITS ---
Test Reason : CP Blood Pressure : */* mmHG Vent. Rate : 96 BPM Atrial Rate : 96 BPM P-R Int : 178 ms QRS Dur : 94 ms QT Int : 384 ms P-R-T Axes : 43 -10 39 degrees QTcB Int : 485 ms Normal sinus rhythm Septal infarct , age undetermined Nonspecific ST and T wave abnormality Abnormal ECG When compared with ECG of 04-Apr-2022 11:59, Nonspecific T wave abnormality, worse in Anterior leads Referred By: Melanie Jain Electronically Signed By: SYLVIA ISABEL
--- NOTE | 2024-04-13 15:18 | ED_ITS ---
HPI - General Adult General Chief complaint: Abdominal Pain Stated complaint: N/V/SOB Time Seen by Provider: 04/13/24 15:18 Source: patient, family (patient's aunt) and EMS Mode of arrival: EMS Limitations: no limitations History of Present Illness ED Provider: Melanie Jain PA-C HPI narrative: Patient is a 48 year old assigned male at with a history of GERD, OCD, anxiety, asthma, and an ICD presenting to the emergency department today with nausea, vomiting, abdominal pain, and altered mental status. Patient states that over the last few hours he has been having abdominal pain, nausea, and vomiting. Patient denies any dizziness, lightheadedness, fever, chills, blurry vision, double vision, loss of vision, chest pain, difficulty breathing, shortness of breath, back pain, night sweats, pain with urination, increased urinary frequency, increased urinary urgency, blood in his urine or stool, syncope or a near syncopal episode, recent trauma or falls, bowel incontinence, bladder incontinence, or any other complaints at this time. Onset (ago): hour(s) Relieving factors: none Exacerbating factors: none Associated symptoms: nausea/vomiting Treatments prior to arrival: none Related Data Home Medications ?Medication ?Instructions ?Recorded ?Confirmed albuterol sulfate 90 mcg/actuation 0 mcg inhalation 06/18/21 aerosol inhaler atorvastatin 10 mg tablet 10 mg PO DAILY 06/18/21 blood sugar diagnostic (FreeStyle #10 ea 06/18/21 Lite Strips) clonazepam 0.5 mg tablet 0 mg PO 06/18/21 dulaglutide 3 mg/0.5 mL mg subcut 06/18/21 subcutaneous pen injector ([facility]) ergocalciferol (vitamin D2) 1,250 1,250 mcg PO QWEEK 06/18/21 mcg (50,000 unit) capsule escitalopram oxalate 20 mg tablet 20 mg PO DAILY 06/18/21 esomeprazole magnesium 40 mg 40 mg PO BID 06/18/21 capsule,delayed release flash glucose sensor (FreeStyle #1 ea 06/18/21 Shelly 2 Sensor kit) fluticasone propionate 50 spray intranasal 06/18/21 mcg/actuation nasal spray,suspension insulin glargine 100 unit/mL (3 unit subcut 06/18/21 mL) subcutaneous pen (Lantus Solostar U-100 Insulin) metformin 1,000 mg tablet 1,000 mg PO BID 06/18/21 metoprolol succinate 50 mg 75 mg PO DAILY 06/18/21 tablet,extended release 24 hr pen needle, diabetic 32 gauge x #50 ea 06/18/21 (BD Venessa 2nd Gen Pen Needle) testosterone 50 mg/5 gram (1 %) 0 mg topical 06/18/21 transdermal gel umeclidinium 62.5 mcg-vilanterol 1 ea inhalation DAILY 06/18/21 25 mcg/actuation powdr for inhalation (Anoro Ellipta) rosuvastatin 20 mg tablet 20 mg PO BEDTIME 04/13/24 sacubitril 24 mg-valsartan 26 mg 1 tab PO BID 04/13/24 tablet (Entresto) ticagrelor 90 mg tablet (Brilinta) 90 mg PO BID 04/13/24 Previous Rx's ?Medication ?Instructions ?Recorded amoxicillin 400 mg/5 mL oral 800 mg (10 mL) PO BID 7 days #140 06/18/21 suspension mL cyclobenzaprine 10 mg tablet 10 mg PO Q8H #14 tabs 04/04/22 naproxen 500 mg tablet 500 mg PO BID PRN pain #14 tabs 04/04/22 potassium chloride 20 mEq 40 meq (2 x 20 mEq) PO DAILY #6 04/04/22 tablet,extended tabs release(part/cryst) (Klor-Con M) tizanidine 4 mg capsule 4 mg PO TID PRN muscle spasticity 04/10/22 #30 caps Allergies Allergy/AdvReac Type Severity Reaction Status Date / Time clindamycin Allergy Mild Rash Verified 04/13/24 15:58 doxycycline Allergy Mild Rash Verified 04/13/24 15:58 latex [LATEX] Allergy Mild SKIN Verified 04/13/24 15:58 IRRITATION cyclobenzaprine AdvReac Itching Verified 04/13/24 15:58 Review of Systems 2 Constitutional: Constitutional: Reports no additional constitutional complaints, Denies chills, Denies fever(s) and Denies night sweats Eyes: Eyes: Reports no additional eye complaints, Denies blurry vision, Denies change in vision, Denies diplopia, Denies eye discharge, Denies loss of vision and Denies eye pain ENT: Denies dizziness Cardiovascular: Cardiovascular: Reports no additional cardiovascular complaints, Denies chest pain, Denies lightheadedness, Denies Loss of Consciousness and Denies dyspnea Respiratory: Respiratory: Reports no additional respiratory complaints and Denies dyspnea Gastrointestinal: Gastrointestinal: Reports no additional gastrointestinal complaints, Reports abdominal pain, Denies melena, Denies hematochezia, Denies change in bowel habits, Denies change in stool character, Reports nausea and Reports vomiting Genitourinary: Genitourinary: Reports no additional male genitourinary complaints, Denies hematuria, Denies oliguria, Denies difficulty urinating, Denies dysuria, Denies urinary frequency, Denies urinary hesitancy, Denies urinary incontinence and Denies urinary urgency Musculoskeletal: Musculoskeletal: Reports no additional musculoskeletal complaints, Denies numbness and Denies tingling Neurologic: Denies dizziness, Denies loss of vision, Denies numbness and Denies tingling Psychiatric: Psychiatric: Reports no additional psychiatric complaints Endocrine: Endocrine: Reports no additional endocrine complaints Hematologic/Lymphatic: Hematologic/Lymphatic: Reports no additional hematologic/lymphatic complaints Allergic/Immunologic: Allergic/Immunologic: Reports no additional allergic/immunologic complaints [facility] Past Medical History Attestation statement: The following information was validated with the patient. (all information validated with the patient's aunt) Source: old records reviewed, obtained from family (patient's aunt provided additional history and confirmed the history provided by the patient) and nursing notes reviewed Social History Social History Tobacco use type: Cigarette Cigarette Packs Per Day: 1 Years Smoked: 25 Smoked in Last 30 Days: No Advance Directives: No Advance Directives Information Provided: No Do you have a plan to hurt others: No Plan Physical Exam ED Vital Signs: Vital Signs - 24 hr 04/13/24 14:57 04/13/24 14:59 04/13/24 14:59 Temperature 99.8 F Pulse Rate 103 H Respiratory Rate 16 Blood Pressure 88/53 L 69/42 L 71/45 L Pulse Oximetry 98 Oxygen Delivery Method Room Air 04/13/24 16:21 04/13/24 17:49 04/13/24 18:00 Temperature 100.1 F 100.0 F Pulse Rate 89 91 90 Respiratory Rate 29 H 17 22 H Blood Pressure 105/63 89/50 L 79/49 L Pulse Oximetry 100 98 97 Oxygen Delivery Method Room Air Room Air Room Air 04/13/24 18:43 04/13/24 19:18 Temperature Pulse Rate 85 48 L Respiratory Rate 16 Blood Pressure 86/51 L 117/63 Pulse Oximetry 98 Oxygen Delivery Method Room Air BMI result Body Mass Index 32.1 Const General: cooperative, no acute distress, alert and awake Nutritional Appearance: well nourished Orientation/consciousness: patient oriented x3 Limitations: no limitations HENMT Head: Yes normal to inspection and Yes atraumatic Ears: hearing grossly normal bilaterally and external ears normal General nose exam: Normal external nose present, no nasal discharge noted and no epistaxis Face and sinus: Yes normal facial exam, No abrasion and No laceration Mouth: Normal oral and palatal mucosa present, no drooling and no muffled voice Eyes General: appearance normal, both eyes and all related structures Periorbital: periorbital findings normal Eyelids: Yes eyelids normal Conjunctivae: conjunctivae normal Pupils: Equal, round and reactive pupils present EOM: EOMs intact bilaterally Neck Neck: Yes normal visual inspection, Yes full ROM and Yes no lymphadenopathy Chest Chest palpation & inspection: normal inspection of the chest Resp Effort & Inspection: normal respiratory effort and able to speak in complete sentences GI Inspection: Yes normal to inspection Palpation (GI): Tenderness to palpation present (GI), no guarding and not rigid Neuro General: patient oriented x3 and moves all extremities Cranial nerves: Yes Equal, round and reactive pupils present Cognition (Neuro): normal cognition Extrem General: Yes normal to inspection, Yes full ROM and Yes capillary refill normal Psych Appearance: grossly normal Mental Status: mental status grossly normal Affect: normal affect Attitude: cooperative Thought process: Normal thought process present Thought content: Normal thought content present Insight: Good insight present (Psych) Medications Administered Generic Name Dose Route Start Last Admin Trade Name Freq PRN Reason Stop Dose Admin Norepinephrine Bitartrate 8 mg in 250 mls @ 0 mls/hr 04/13/24 18:45 04/13/24 18:43 Levophed IVCONT 0.05 mcg/kg/min .Q0M MARTY 8.45 mls/hr Administration Protocol Per Protocol Sodium Chloride 1,000 mls @ 999 mls/hr 04/13/24 19:15 04/13/24 19:16 Ns IV 04/13/24 20:15 999 mls/hr .Q1H1M MARTY Administration Discontinued Medications Generic Name Dose Route Start Last Admin Trade Name Nile PRN Reason Stop Dose Admin Ceftriaxone Sodium 1 gm 04/13/24 18:01 04/13/24 18:19 Ceftriaxone Sodium 1 Gm Vial IVPUSH 04/13/24 18:02 1 gm ONCE ONE Administration Hydrocortisone Sodium Succinate 100 mg 04/13/24 18:01 04/13/24 18:19 Hydrocortisone Sod Succ/Pf 100 Mg Vial IVPUSH 04/13/24 18:02 100 mg ONCE ONE Administration Lactated Ringer's 1,000 mls @ 999 mls/hr 04/13/24 15:30 04/13/24 16:41 Lr IV 04/13/24 16:30 999 mls/hr .Q1H1M MARTY Administration Magnesium Sulfate 2 gm in 50 mls @ 25 mls/hr 04/13/24 16:00 04/13/24 19:51 Magnesium Sulfate/H2o IV 04/13/24 17:59 Infused ONCE ONE Infusion Potassium Chloride 10 meq in 100 mls @ 100 mls/hr 04/13/24 16:00 04/13/24 19:50 Potassium Chloride/H20 IV 04/13/24 19:59 Not Given Q1H MARYT Acetaminophen 1,000 mg in 100 mls @ 400 mls/hr 04/13/24 16:53 04/13/24 17:46 Ofirmev IV 04/13/24 17:07 400 mls/hr ONCE ONE Administration Iohexol 100 ml 04/13/24 15:54 04/13/24 15:55 Iohexol 350 Mg/Ml 100 Ml Infus..Btl IV 04/13/24 15:55 85 ml ONCE ONE Administration Pantoprazole Sodium 40 mg 04/13/24 16:53 04/13/24 17:46 Pantoprazole Sodium 40 Mg/10 Ml Vial IVPUSH 04/13/24 16:54 40 mg ONCE ONE Administration Medical Decision Making Medical Decision Making MDM Narrative: Patient is a 48 year old assigned male at with a history of GERD, OCD, anxiety, asthma, and an ICD presenting to the emergency department today with nausea, vomiting, abdominal pain, and altered mental status. Patient's physical exam was as noted in the physical exam portion of this note. Patient's blood work showed a potassium of 2.7, initial lactic acid of 2.6, and magnesium of 1.1. Patient's EKG was unremarkable. Patient's COVID-19 test was positive[address] Patient's CT abd/pelvis showed gastritis. I explained my physical exam findings as well as all test results to the patient and the patient's aunt. I answered all questions asked by the patient and the patient's aunt. Patient was given IV magnesium, potassium, and protonix. I believe patient's fever is secondary to COVID-19 however, IV ceftriaxone given to cover for possible bacterial infection. Patient was persistently hypotensive while in the department. Patient was given 2 liters of IV fluid and his hypotension did not improve. I consulted with my attending physician, Dr. Degroot, who recommended giving IV Hydrocortisone and re-assessing his blood pressure - treating a possible underlying adrenal cause for his hypotension. Medication was given, and no improvement with his hypotension. I consulted with Dr. Jose who recommended giving another liter of fluid while the patient was on levophed and re- evaluating. If patient remains reliant on levophed, patient will be admitted to the ICU. Patient signed out to candelario Sotelo pending either improvement of blood pressure + weening off of levophed or admission to ICU. Differential Diagnosis Differential Diagnoses: The differential diagnosis associated with the presentation includes COVID-19 Gastritis Abdominal pain Hypotension Hypomagnesemia Hypokalemia Gastroenteritis Nausea Vomiting Admission/Observation Consideration of admission/observation: Escalation of care including admission/observation considered Patient will be admitted to either the ICU or the floor pending his blood pressure status on re-evaluation. Consult Healthcare Provider Management of the patient was discussed with: [employer] (consulted with Dr. Jose, the compression molding machine setter, as noted in the MDM Rationale portion of this note.) Lab Data [facility] Lab Attestation statement: I reviewed the patient's lab results. My interpretation of these results are in the MDM Rationale portion of this note. 04/13/24 19:12 04/13/24 15:21 Labs: Lab Results 04/13/24 04/13/24 04/13/24 Range/Units 15:21 15:42 18:06 WBC 6.2 (4.8-10.8) X10*3/uL RBC 4.63 (4.60-5.80) X10*6/uL Hgb 13.2 L (14.0-18.0) g/dl Hct 38.3 L (42.0-52.0) % MCV 82.7 (80.0-98.0) fL MCH 28.5 (27.0-33.0) pg MCHC 34.5 (31.0-36.0) g/dl RDW 17.3 H (11.0-16.0) % Plt Count 163 D (160-400) X10*3/uL MPV 9.4 (9.4-12.4) fL Immature Gran % (Auto) 0.6 H (0.0-0.4) % Neut % (Auto) 66.9 (45-73) % Lymph % (Auto) 19.7 L (20-40) % Logan % (Auto) 11.0 (2-11) % Eos % (Auto) 1.3 (0-4) % Baso % (Auto) 0.5 (0-2) % Lymph # (Auto) 1.2 (1.2-4.9) X10*3/uL Logan # (Auto) 0.7 (0.1-1.2) X10*3/uL Eos # (Auto) 0.1 (0.0-0.4) X10*3/uL Baso # (Auto) 0.0 (0.0-0.2) X10*3/uL Abs Immat Gran (auto) 0.04 H (0.00-0.03) X10*3/uL Absolute Neuts (auto) 4.1 (2.0-8.3) x10*3/uL Absolute Nucleated RBC 0.040 H (0.0-0.012) X10*3/uL Nucleated RBC % (auto) 0.6 H (0.0-0.2) /100WBC PT 13.1 H (10.9-12.4) SEC INR 1.1 (0.9-1.1) APTT 29.2 (26.0-36.8) SEC Sodium 139 (135-145) mmol/L Potassium 2.7 L* D (3.3-5.1) mmol/L Chloride 103 (96-108) mmol/L Carbon Dioxide 23 (22-29) mmol/L Anion Gap 16 (12-20) BUN 5 L (9-16) mg/dL Creatinine 1.38 (0.5-1.4) mg/dL Estim Creat Clear Calc TNP Estimated GFR 55 Random Glucose 205 H (60-115) mg/dL Lactic Acid 2.6 H* (0.5-2.0) mmol/L Lactic Acid F/U @ 2Hr 1.9 (0.5-2.0) mmol/L Calcium 8.6 D (8.4-10.2) mg/dL Magnesium 1.1 L* (1.6-2.6) mg/dL Total Bilirubin 0.5 (0.0-1.0) mg/dL AST 142 H (5-37) U/L ALT 83 H (0-40) U/L Alkaline Phosphatase 86 (39-117) U/L Troponin I High Sens 12.1 (<3.5-35.0) ng/L B-Natriuretic Peptide 15 (<100) pg/mL Total Protein 6.8 (6.5-8.0) g/dL Albumin 3.7 (3.5-5.0) g/dL Lipase 14 (8-78) U/L Influenza Type A (PCR) NEGATIVE (Negative) Influenza Type B (PCR) NEGATIVE (Negative) RSV RNA Qual (PCR) NEGATIVE (Negative) SARS-CoV-2 RNA (RT-PCR) POSITIVE A (Negative) 04/13/24 Range/Units 19:12 WBC 7.1 (4.8-10.8) X10*3/uL RBC 4.29 L (4.60-5.80) X10*6/uL Hgb 12.4 L (14.0-18.0) g/dl Hct 35.5 L (42.0-52.0) % MCV 82.8 (80.0-98.0) fL MCH 28.9 (27.0-33.0) pg MCHC 34.9 (31.0-36.0) g/dl RDW 17.3 H (11.0-16.0) % Plt Count 161 (160-400) X10*3/uL MPV 9.5 (9.4-12.4) fL Immature Gran % (Auto) 1.0 H (0.0-0.4) % Neut % (Auto) 66.7 (45-73) % Lymph % (Auto) 18.4 L (20-40) % Logan % (Auto) 12.5 H (2-11) % Eos % (Auto) 0.7 (0-4) % Baso % (Auto) 0.7 (0-2) % Lymph # (Auto) 1.3 (1.2-4.9) X10*3/uL Logan # (Auto) 0.9 (0.1-1.2) X10*3/uL Eos # (Auto) 0.1 (0.0-0.4) X10*3/uL Baso # (Auto) 0.1 (0.0-0.2) X10*3/uL Abs Immat Gran (auto) 0.07 H (0.00-0.03) X10*3/uL Absolute Neuts (auto) 4.8 (2.0-8.3) x10*3/uL Absolute Nucleated RBC 0.030 H (0.0-0.012) X10*3/uL Nucleated RBC % (auto) 0.4 H (0.0-0.2) /100WBC PT (10.9-12.4) SEC INR (0.9-1.1) APTT (26.0-36.8) SEC Sodium (135-145) mmol/L Potassium (3.3-5.1) mmol/L Chloride (96-108) mmol/L Carbon Dioxide (22-29) mmol/L Anion Gap (12-20) BUN (9-16) mg/dL Creatinine (0.5-1.4) mg/dL Estim Creat Clear Calc Estimated GFR Random Glucose (60-115) mg/dL Lactic Acid (0.5-2.0) mmol/L Lactic Acid F/U @ 2Hr (0.5-2.0) mmol/L Calcium (8.4-10.2) mg/dL Magnesium (1.6-2.6) mg/dL Total Bilirubin (0.0-1.0) mg/dL AST (5-37) U/L ALT (0-40) U/L Alkaline Phosphatase (39-117) U/L Troponin I High Sens (<3.5-35.0) ng/L B-Natriuretic Peptide (<100) pg/mL Total Protein (6.5-8.0) g/dL Albumin (3.5-5.0) g/dL Lipase (8-78) U/L Influenza Type A (PCR) (Negative) Influenza Type B (PCR) (Negative) RSV RNA Qual (PCR) (Negative) SARS-CoV-2 RNA (RT-PCR) (Negative) Independent Interpretation I performed an independent interpretation of an: EKG and CT Scan Interpretation: My interpretation is in agreement with the radiologist's impression of this imaging study. L Report Number: [id number]: Total DLP = 690.00 mGy-cm CLINICAL HISTORY: abd pain, hypotension CT abdomen and pelvis with contrast Comparison: CT/REG/SR - CT ABDOMEN PELVIS WO IV CON - 04/04/22 11:30 EST Findings: The lung bases are clear. There is a cardiac pacemaker. Multiple kidney cysts. No hydronephrosis. Remaining abdominal organs are unremarkable. Prior cholecystectomy. Apparent thickening of the wall of the stomach. No colitis or bowel obstruction. No pneumatosis or portal venous gas. No free fluid. Pelvic contents unremarkable. Normal appendix. No acute fracture. IMPRESSION: There is apparent thickening of the wall of the stomach. This may be secondary to underdistention but gastritis could also be considered. This document has been electronically signed by: Lori Moser MD on 04/13/2024 16:51:14 Dictated By: Lori Moser MD Signed By: Electronically signed by Lori Moser MD 04/13/24 1652 I independently interpreted this EKG and am in agreement with the below findings: Vent. Rate: 96 BPM Atrial Rate: 96 BPM P-R Int: 178 ms QRS Dur: 94 ms QT Int: 384 ms P-R-T Axes: 43 -10 39 degrees QTcB Int: 485 ms Normal sinus rhythm Septal infarct, age undetermined When compared with ECG of 04-Apr-2022 11:59, Nonspecific T wave abnormality, worse in Anterior leads DD/ 1542 Radiology Impression Discussion of test interpretation with radiology: I have reviewed the radiologist's reading. Independent Historian Clinical information obtained from an independent historian. History obtained from or confirmed by: EMS (EMS provided additional history and confirmed the history provided by the patient.) and Other (patient's aunt provided additional history and confirmed the history provided by the patient) Critical Care Time Critical Care Time Critical Care Time: Yes Total Critical Care Time: 51 Attestation: I spent 51 minutes of Critical Care Time with this patient. This does not include time spent on separately reported billable procedures. Discharge Plan Discharge Clinical Impression: Acute hypotension, COVID-19, Hypomagnesemia, Hypokalemia Patient Disposition: Still a Patient Prescriptions: No Action naproxen 500 mg tablet 500 mg PO BID PRN (Reason: pain) Qty: 14 0RF cyclobenzaprine 10 mg tablet 10 mg PO Q8H Qty: 14 0RF potassium chloride [Klor-Con M20] 20 mEq tablet,ER particles/crystals 40 meq PO DAILY Qty: 6 0RF rosuvastatin 20 mg tablet 20 mg PO BEDTIME Brilinta 90 mg tablet 90 mg PO BID sacubitril-valsartan [Entresto] 24-26 mg tablet 1 tab PO BID Trulicity 3 mg/0.5 mL pen injector subcut Lantus Solostar U-100 Insulin 100 unit/mL (3 mL) insulin pen subcut Anoro Ellipta 62.5-25 mcg/actuation blister with device 1 ea inhalation DAILY fluticasone propionate 50 mcg/actuation spray,suspension intranasal clonazepam 0.5 mg tablet 0 mg PO (DME) FreeStyle Shelly 2 Sensor Kit See Rx Instructions .ROUTE .MEDSUPPLY Qty: 1 Rx Instructions: As directed escitalopram oxalate 20 mg tablet 20 mg PO DAILY (DME) pen needle, diabetic [BD Venessa 2nd Gen Pen Needle] 32 gauge x 5/32 needle See Rx Instructions .ROUTE .MEDSUPPLY Qty: 50 Rx Instructions: As directed testosterone 50 mg/5 gram (1 %) gel 0 mg topical esomeprazole magnesium 40 mg capsule,delayed release(DR/EC) 40 mg PO BID albuterol sulfate 90 mcg/actuation HFA aerosol inhaler 0 mcg inhalation (DME) FreeStyle Lite Strips Strip See Rx Instructions Not Applicable .MEDSUPPLY Qty: 10 Rx Instructions: As directed metoprolol succinate 50 mg tablet extended release 24 hr 75 mg PO DAILY ergocalciferol (vitamin D2) 1,250 mcg (50,000 unit) capsule 1,250 mcg PO QWEEK metformin 1,000 mg tablet 1,000 mg PO BID atorvastatin 10 mg tablet 10 mg PO DAILY amoxicillin 400 mg/5 mL suspension for reconstitution 800 mg PO BID 7 Days Qty: 140 0RF tizanidine 4 mg capsule 4 mg PO TID PRN (Reason: muscle spasticity) Qty: 30 0RF Print Language: Bur[place]ian
[2024-04-13 15:25] LABS: MANUAL DIFF FLAG NO
[2024-04-13 15:30] LABS: Basophils Percent Auto 0.5 % (0-2); Eosinophils Absolute Auto 0.1 X10*3/uL (0.0-0.4); Eosinophils Percent Auto 1.3 % (0-4); Hematocrit 38.3 % (42.0-52.0); Hemoglobin 13.2 g/dl (14.0-18.0); Imm Gran Abs Auto 0.04 X10*3/uL (0.00-0.03); Imm Gran Pct Auto 0.6 % (0.0-0.4); Lymphocytes Absolute Auto 1.2 X10*3/uL (1.2-4.9); Lymphocytes Percent Auto 19.7 % (20-40); Mean Corpuscular HGB Conc 34.5 g/dl (31.0-36.0); Mean Corpuscular Hemoglobin 28.5 pg (27.0-33.0); Mean Corpuscular Volume 82.7 fL (80.0-98.0); Mean Platelet Volume 9.4 fL (9.4-12.4); Monocytes Absolute Auto 0.7 X10*3/uL (0.1-1.2); NRBC Pct Auto 0.6 /100WBC (0.0-0.2); Neutrophils Absolute Auto 4.1 x10*3/uL (2.0-8.3); Neutrophils Percent Auto 66.9 % (45-73); Platelet Count 163 X10*3/uL (160-400); Red Blood Count 4.63 X10*6/uL (4.60-5.80); Red Cell Distribution Width 17.3 % (11.0-16.0); White Blood Count 6.2 X10*3/uL (4.8-10.8)
[2024-04-13 15:32] LABS: INTERNATIONAL NORM RATIO 1.1 (0.9-1.1); Prothrombin Time 13.1 SEC (10.9-12.4)
[2024-04-13 15:35] LABS: Partial Thromboplastin Time 29.2 SEC (26.0-36.8)
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
[2024-04-13 15:51] LABS: Troponin-I High Sensitivity 12.1 ng/L (<3.5-35.0)
[2024-04-13] MEDS: iohexoL 350 MG/ML 100 ML INFUS..BTL IV (15:55)
[2024-04-13 15:59] LABS: Alanine Aminotransferase 83 U/L (0-40); Albumin Level 3.7 g/dL (3.5-5.0); Alkaline Phosphatase 86 U/L (39-117); Anion Gap 16 (12-20); Aspartate Amino Transferase 142 U/L (5-37); Bilirubin Total 0.5 mg/dL (0.0-1.0); Blood Urea Nitrogen 5 mg/dL (9-16); Calcium 8.6 mg/dL (8.4-10.2); Carbon Dioxide 23 mmol/L (22-29); Chloride 103 mmol/L (96-108); Estimated Glomerular Filt Rate 55; Glucose Random 205 mg/dL (60-115); Lipase 14 U/L (8-78); Magnesium 1.1 mg/dL (1.6-2.6); Potassium 2.7 mmol/L (3.3-5.1); Sodium 139 mmol/L (135-145); Total Protein 6.8 g/dL (6.5-8.0)
[2024-04-13 16:03] LABS: Influenza A PCR NEGATIVE (Negative); Influenza B PCR NEGATIVE (Negative); Resp Syncy Virus RNA Qual PCR NEGATIVE (Negative); SARS COV2 PCR INHOUSE POSITIVE (Negative)
[2024-04-13 16:08] LABS: B Type Natriuretic Peptide 15 pg/mL (<100)
[2024-04-13 16:11] LABS: Lactic Acid 2.6 mmol/L (0.5-2.0)
[2024-04-13] MEDS: Potassium Chloride/H20 10 MEQ/100 ML PIGGYBACK 100 MEQ IV (16:40)
[2024-04-13] MEDS: Lactated Ringers 1,000 ML 999 ML IV (16:41)
[2024-04-13] MEDS: Magnesium Sulfate/H2O 2 GM/50 ML PIGGYBACK IV (16:42)
[2024-04-13] MEDS: Acetaminophen 1,000 MG/100 ML PIGGYBACK 400 MG IV (17:46)
[2024-04-13] MEDS: Pantoprazole Sodium 40 MG/10 ML VIAL IVPUSH (17:46)
[2024-04-13 17:51] LABS: Reflex Lactate? Lactic Acid Added
--- NOTE | 2024-04-13 18:13 | PC.NURSE ---
Pt. refusing to give urine sample at this time.
[2024-04-13] MEDS: Hydrocortisone Sod Succ/PF 100 MG VIAL IVPUSH (18:19)
[2024-04-13] MEDS: cefTRIAXone sodium 1 GM VIAL IVPUSH (18:19)
[2024-04-13 18:27] LABS: ~Lactic Acid-LAB USE ONLY 1.9 mmol/L (0.5-2.0)
[2024-04-13] MEDS: Norepinephrine Bitartrate/D5W 8 MG/250 ML PLAST..BAG 8.45 MG IVCONT (18:43)
--- NOTE | 2024-04-13 18:45 | PC.NURSE ---
Pt. is refusing Potassium infusion d/t burning. Tried to run the Potassium at slowed rate - OK'ed per provider - to reduce burning, but pt. still adamantly refusing Potassium. Educated pt. as to dangers of low Potassium. RENATO Hernandez aware.
[2024-04-13 19:16] LABS: MANUAL DIFF FLAG NO
[2024-04-13] MEDS: 0.9 % Sodium Chloride 1,000 ML 999 ML IV (19:16)
[2024-04-13 19:32] LABS: Basophils Absolute Auto 0.1 X10*3/uL (0.0-0.2); Basophils Percent Auto 0.7 % (0-2); Eosinophils Absolute Auto 0.1 X10*3/uL (0.0-0.4); Eosinophils Percent Auto 0.7 % (0-4); Hematocrit 35.5 % (42.0-52.0); Hemoglobin 12.4 g/dl (14.0-18.0); Imm Gran Abs Auto 0.07 X10*3/uL (0.00-0.03); Lymphocytes Absolute Auto 1.3 X10*3/uL (1.2-4.9); Lymphocytes Percent Auto 18.4 % (20-40); Mean Corpuscular HGB Conc 34.9 g/dl (31.0-36.0); Mean Corpuscular Hemoglobin 28.9 pg (27.0-33.0); Mean Corpuscular Volume 82.8 fL (80.0-98.0); Mean Platelet Volume 9.5 fL (9.4-12.4); Monocytes Absolute Auto 0.9 X10*3/uL (0.1-1.2); Monocytes Percent Auto 12.5 % (2-11); NRBC Pct Auto 0.4 /100WBC (0.0-0.2); Neutrophils Absolute Auto 4.8 x10*3/uL (2.0-8.3); Neutrophils Percent Auto 66.7 % (45-73); Platelet Count 161 X10*3/uL (160-400); Red Blood Count 4.29 X10*6/uL (4.60-5.80); Red Cell Distribution Width 17.3 % (11.0-16.0); White Blood Count 7.1 X10*3/uL (4.8-10.8)
--- NOTE | 2024-04-13 20:44 | MHC.EDTECH ---
Patient does not want to sign belongings list at this time, and has asked that this tech sign it with another staff.
[2024-04-13] MEDS: Lactated Ringers 500 ML 999 ML IV (21:11)
--- NOTE | 2024-04-13 22:12 | PHA.MEDREC ---
Addendum entered by Gilberto Salazar [facility] 04/13/24 22:24: Med rec reviewed Original Note: Pharmacy Consult ? Medication Reconciliation Pharmacy has completed the medication reconciliation. Confirmed medicaitons with patient. He confirmed his Lantus Solostar and confirmed he does 60 units at bedtime. He confirmed the Trulicity 3 mg/0.5 mL injection and confirmed he takes it on Sundays and took it this past Tuesday. He confirmed [facility] fills at [facility] [address] in [place], [facility] [address] in [place] and [facility] delivery [facility]. He confirmed he took all his medications yesterday and was not able to take any today.
[2024-04-14] VITALS (18 sets, daily range): BP systolic 76–145; BP diastolic 43–78; PULSE 55–95; RESP 12–20; TEMP 36.7–37.7; O2SAT 93–97; BMI 32.3
[2024-04-14 00:04] LABS: Appearance Urine Clear; Color Urine Yellow; Glucose Urine UA >=1000 mg/dL (Negative); Leukocyte Esterase Urine Negative (Negative); Nitrite Urine Negative (Negative); PH 5.5 (5.0-9.0); Specific Gravity - Urine >= 1.030 (1.005-1.025); UMIC TRIGGER UACC YES; Urine Blood Negative (Negative); Urine Ketones Negative (Negative); Urine Protein 30 (1+) mg/dL (Neg-Trace)
[2024-04-14 00:14] LABS: Bacteria Urine None Seen (None Seen); Hyaline Casts Urine 0-2 /LPF (0-2); RBC Urine 0-2 /HPF (0-2); Squamous Epithelial Cell Urine 0-2 /HPF (0-2); WBC Urine 0-5 /HPF (0-5)
[2024-04-14] MEDS: Enoxaparin Sodium 40 MG/0.4 ML SYRINGE SUBCUT (01:46)
[2024-04-14] MEDS: Potassium Chloride/H20 10 MEQ/100 ML PIGGYBACK 100 MEQ IV ×3 (01:46→05:16)
[2024-04-14] MEDS: Lactated Ringers 500 ML 999 ML IV (01:47)
[2024-04-14] MEDS: Albumin Human 25 % 100 ML IV ×2 (01:49→02:30)
--- NOTE | 2024-04-14 02:41 | PM.CCHP ---
History of Present Illness Date of Service: 04/14/24 Attending physician on admission: Arthur Jose Chief Complaint: Abdominal pain Review of Systems Review of Systems: Yes all other systems are reviewed and are negative Constitutional: Constitutional: Denies chills, Denies excessive sweating, Denies fatigue, Denies fever(s) and Denies headache(s) Eyes: Eyes: Denies blurry vision, Denies change in vision, Denies diplopia and Denies spots in vision ENT: Reports Normal hearing present, Denies headache(s), Denies nasal congestion, Denies nasal discharge, Denies post nasal drip, Denies sinus pain, Denies sinus pressure and Denies sore throat Cardiovascular: Cardiovascular: Denies chest pain, Denies diaphoresis, Denies syncope, Denies rapid heart rate, Denies lightheadedness, Denies Loss of Consciousness and Denies dyspnea Respiratory: Respiratory: Denies chest congestion, Denies cough, Denies dyspnea and Denies wheezing Gastrointestinal: Gastrointestinal: Reports abdominal pain, Denies diarrhea, Denies nausea and Denies vomiting (no vomiting since arrival to ED) Genitourinary: Genitourinary: Denies hematuria, Denies difficulty urinating, Denies dysuria, Denies urinary frequency and Denies urinary hesitancy Musculoskeletal: Musculoskeletal: Reports no additional musculoskeletal complaints, Denies numbness and Denies tingling Integumentary/Breasts: Skin/Breast: Denies lesions, Denies rash and Denies wounds Neurologic: Reports Normal hearing present, Reports confusion (confusion and hallucinations prior to arrival), Denies syncope, Denies headache(s), Denies numbness and Denies tingling Psychiatric: Psychiatric: Reports confusion (confusion and hallucinations prior to arrival) and Reports depression Endocrine: Endocrine: Denies change in body appearance, Denies excessive sweating, Denies fatigue, Denies flushing, Denies heat intolerance, Denies polyphagia, Denies polydipsia and Denies polyuria Allergic/Immunologic: Allergic/Immunologic: Denies wheezing PMFSH Social History Social History (Updated 04/14/24 @ 03:43 by Holly Marie NP) Alcohol intake: never Tobacco use type: Cigarette Cigarette Packs Per Day: 1 Years Smoked: 25 Smoked in Last 30 Days: Yes Use of substances other than those prescribed or required for medical reasons: No Advance Directives: No Advance Directives Information Provided: No Do you have a plan to hurt others: No Plan Travel History Ebola Risk: Travel/Contact With Anyone From Affected Area/s: No Narrative Narrative: Mr. Denney is a 48-year-old male with history of GERD, OCD, anxiety, asthma? who presents to the emergency department with complaint of nausea, vomiting, abdominal pain and hallucinations.? He stated that he had been vomiting for about 3 hours prior to arrival however when questioned he stated his last meal was serial on either Tuesday or Tuesday. He reports having had abdominal pain with several days of diarrhea about 2 weeks ago that has since cleared. He denies any dizziness, lightheadedness, Chest pain or syncope/near syncopal events. No fever, chills or sweating. No changes in vision. He denies any difficulty breathing or shortness of breath, or any urinary irregularities. He reports that his blood sugars have been about the same as they usually are. He denies any known sick contacts and reports that the last time he left his house was approximately 11 days ago. 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 On arrival to the ER, his BP was 88/53, heart rate 103, respiratory rate 16, O2 sat 98% on room air. Temp 99.8? F. Laboratory data significant for? Potassium 2.7, BUN 5, glucose 205, initial lactic acid 2.6, magnesium 1.1, AST 142, ALT 83. UA ? specific gravity > 1.030, protein1+ , glucose >1000 mg/dL. COVID-19 positive. Imaging:? Chest x-ray unremarkable. Abdominal CT indicative of gastritis. ED course: ? The patient was persistently hypotensive while in the emergency room.? He received a total of 4 L crystalloids, 200 mL colloids. He was started on a norepinephrine drip. Attempts to wean off? pressor were unsuccessful. He was given magnesium 2 g, KCL 10 mEq, acetaminophen 1 g, Protonix 40 mg, ceftriaxone 1 g,? Solu-Cortef 100 mg. Meds Allergies Allergy/AdvReac Type Severity Reaction Status Date / Time clindamycin Allergy Mild Rash Verified 04/13/24 15:58 doxycycline Allergy Mild Rash Verified 04/13/24 15:58 latex [LATEX] Allergy Mild SKIN Verified 04/13/24 15:58 IRRITATION cyclobenzaprine AdvReac Itching Verified 04/13/24 15:58 Active Medications: Current Medications Enoxaparin Sodium (Enoxaparin Sodium 40 Mg/0.4 Ml Syringe) 40 mg SUBCUT BEDTIME [facility] Last Admin: 04/14/24 01:46 Dose: 40 mg Glucose (Glucose Gel 15 Gm Gel..Gram.) 15 gm PO Q15M PRN; Protocol PRN Reason: per Hypoglycemia Standing Ord. Norepinephrine Bitartrate (Levophed) 8 mg in 250 mls @ 0 mls/hr IVCONT .Q0M [facility]; Protocol Last Titration: 04/14/24 00:38 Dose: 0.03 mcg/kg/min, 5.07 mls/hr Albumin Human (Kedbumin 25 %) 100 mls @ 100 mls/hr IV Q1H [facility] Stop: 04/14/24 02:59 Last Admin: 04/14/24 02:30 Dose: 100 mls/hr Potassium Chloride (Potassium Chloride/H20) 10 meq in 100 mls @ 100 mls/hr IV Q1H [facility] Stop: 04/14/24 05:29 Last Admin: 04/14/24 01:46 Dose: 100 mls/hr Dextrose (D10) 250 mls @ 750 mls/hr IV Q15M PRN; Protocol PRN Reason: per Hypoglycemia Standing Ord. Magnesium Sulfate (Magnesium Sulfate/H2o) 2 gm in 50 mls @ 25 mls/hr IV ONCE ONE Stop: 04/14/24 04:06 Pantoprazole Sodium (Pantoprazole Sodium 40 Mg/10 Ml Vial) 40 mg IVPUSH DAILY@0630 [facility] Home Medications ?Medication ?Instructions ?Recorded ?Confirmed ?Last Taken ?Type albuterol sulfate 90 mcg/actuation 2 inh inhalation Q6H PRN Shortness 06/18/21 04/13/24 04/12/24 History aerosol inhaler Of Breath Or Wheezing blood sugar diagnostic (FreeStyle #10 ea 06/18/21 Unknown History Lite Strips) clonazepam 0.5 mg tablet 0.5 mg PO BID PRN Anxiety 06/18/21 04/13/24 04/12/24 History dulaglutide 3 mg/0.5 mL 3 mg subcut LIRIANO 06/18/21 04/13/24 04/08/24 History subcutaneous pen injector (Trulicity) escitalopram oxalate 20 mg tablet 20 mg PO DAILY 06/18/21 04/13/24 04/12/24 History esomeprazole magnesium 40 mg 40 mg PO BID@0630,1630 06/18/21 04/13/24 04/12/24 History capsule,delayed release flash glucose sensor (FreeStyle #1 ea 06/18/21 Unknown History Shelly 2 Sensor kit) fluticasone propionate 50 1 spray intranasal DAILY 06/18/21 04/13/24 04/12/24 History mcg/actuation nasal spray,suspension insulin glargine 100 unit/mL (3 60 unit subcut BEDTIME 06/18/21 04/13/24 04/12/24 History mL) subcutaneous pen (Lantus Solostar U-100 Insulin) pen needle, diabetic 32 gauge x #50 ea 06/18/21 Unknown History (BD Venessa 2nd Gen Pen Needle) dapagliflozin propanediol 10 mg 10 mg PO DAILY 04/13/24 04/13/24 04/12/24 History tablet (Farxiga) fluticasone fur. 100 mcg-umeclid 1 inh inhalation DAILY 04/13/24 04/13/24 Unknown History 62.5 mcg-vilant 25 mcg inhalat.powder (Trelegy Ellipta) rosuvastatin 20 mg tablet 20 mg PO BEDTIME 04/13/24 04/13/24 04/12/24 History sacubitril 24 mg-valsartan 26 mg 1 tab PO BID 04/13/24 04/13/24 04/12/24 History tablet (Entresto) ticagrelor 90 mg tablet (Brilinta) 90 mg PO BID 04/13/24 04/13/24 04/12/24 History Physical Exam Vital Signs: Vital Signs: Last Vital Signs Temp 98.7 F 04/14/24 01:53 Pulse 61 04/14/24 01:53 Resp 16 04/14/24 01:53 BP 136/68 04/14/24 01:53 Pulse Ox 96 04/14/24 01:53 O2 Del Method Room Air 04/14/24 01:53 BMI result Body Mass Index 32.1 Const: General: confusion (confusion and hallucinations prior to arrival) Orientation/consciousness: confusion (confusion and hallucinations prior to arrival) HEENT: Head: Yes normocephalic and Yes atraumatic General nose exam: Normal external nose present (Nares patent, septum midline, sinuses nontender bilaterally.) Mouth: Normal oral and palatal mucosa present (No thrush, tongue in midline, mucosa moist.) Throat: Yes other (No erythema, no exudate.) Neck: Neck: Yes supple (no thyromegaly, trachea midline.) Carotids: normal carotid upstroke Resp: Auscultation: clear to auscultation bilaterally (normal work of breathing, no accessory muscle use) Cardio: Jugular venous distension: no JVD Rate: regular rate Rhythm: regular rhythm Heart sounds: no gallops, no murmurs and no rubs Peripheral pulses: Peripheral pulses 2+ throughout GI: Palpation (GI): Soft to palpation (nondistended.) and Tenderness to palpation present (GI) Neuro: General: confusion (confusion and hallucinations prior to arrival) Cranial nerves: Yes Normal hearing present Extrem: General: Yes full ROM, Yes capillary refill normal and Yes no clubbing, cyanosis or edema Psych: Affect: normal affect Attitude: cooperative Results Labs 04/13/24 19:12 04/13/24 15:21 Labs: Laboratory Results - last 24 hr 04/13/24 04/13/24 04/13/24 15:21 15:42 18:06 MCV 82.7 MCH 28.5 MCHC 34.5 RDW 17.3 H Plt Count 163 D MPV 9.4 Immature Gran % (Auto) 0.6 H Neut % (Auto) 66.9 Lymph % (Auto) 19.7 L [place] % (Auto) 11.0 Eos % (Auto) 1.3 Baso % (Auto) 0.5 Lymph # (Auto) 1.2 [place] # (Auto) 0.7 Eos # (Auto) 0.1 Baso # (Auto) 0.0 Abs Immat Gran (auto) 0.04 H Absolute Neuts (auto) 4.1 Absolute Nucleated RBC 0.040 H Nucleated RBC % (auto) 0.6 H PT 13.1 H INR 1.1 APTT 29.2 Anion Gap 16 Estim Creat Clear Calc TNP Estimated GFR 55 Random Glucose 205 H Lactic Acid 2.6 H* Lactic Acid F/U @ 2Hr 1.9 Calcium 8.6 D Magnesium 1.1 L* Total Bilirubin 0.5 AST 142 H ALT 83 H Alkaline Phosphatase 86 Troponin I High Sens 12.1 B-Natriuretic Peptide 15 Total Protein 6.8 Albumin 3.7 Lipase 14 Urine Color Urine Appearance Urine pH Ur Specific [place] Urine Protein Urine Glucose (UA) Urine Ketones Urine Blood Urine Nitrite Ur Leukocyte Esterase Urine RBC Urine WBC Ur Squamous Epith Cells Urine Bacteria Hyaline Casts Influenza Type A (PCR) NEGATIVE Influenza Type B (PCR) NEGATIVE RSV RNA Qual (PCR) NEGATIVE SARS-CoV-2 RNA (RT-PCR) POSITIVE A 04/13/24 04/13/24 19:12 23:57 MCV 82.8 MCH 28.9 MCHC 34.9 RDW 17.3 H Plt Count 161 MPV 9.5 Immature Gran % (Auto) 1.0 H Neut % (Auto) 66.7 Lymph % (Auto) 18.4 L [place] % (Auto) 12.5 H Eos % (Auto) 0.7 Baso % (Auto) 0.7 Lymph # (Auto) 1.3 [place] # (Auto) 0.9 Eos # (Auto) 0.1 Baso # (Auto) 0.1 Abs Immat Gran (auto) 0.07 H Absolute Neuts (auto) 4.8 Absolute Nucleated RBC 0.030 H Nucleated RBC % (auto) 0.4 H PT INR APTT Anion Gap Estim Creat Clear Calc Estimated GFR Random Glucose Lactic Acid Lactic Acid F/U @ 2Hr Calcium Magnesium Total Bilirubin AST ALT Alkaline Phosphatase Troponin I High Sens B-Natriuretic Peptide Total Protein Albumin Lipase Urine Color Yellow Urine Appearance Clear Urine pH 5.5 Ur Specific [place] >= 1.030 H Urine Protein 30 (1+) H Urine Glucose (UA) >=1000 H Urine Ketones Negative Urine Blood Negative Urine Nitrite Negative Ur Leukocyte Esterase Negative Urine RBC 0-2 Urine WBC 0-5 Ur Squamous Epith Cells 0-2 Urine Bacteria None Seen Hyaline Casts 0-2 Influenza Type A (PCR) Influenza Type B (PCR) RSV RNA Qual (PCR) SARS-CoV-2 RNA (RT-PCR) Assessment and Plan (1) Acute hypotension: Status: Acute (2) Hypovolemia associated with vomiting: Status: Acute (3) Hypokalemia: Status: Acute (4) Hypomagnesemia: Status: Acute (5) Gastritis: Qualifiers: Gastritis type: unspecified gastritis Chronicity: unspecified Gastritis bleeding: without bleeding Qualified Code(s): K29.70 - Gastritis, unspecified, without bleeding Status: Acute (6) COVID-19: Status: Acute Plan 48-year-old male with history of GERD, OCD, anxiety, asthma admitted for management of COVID-19, hypotension, hypovolemia, gastritis, electrolyte abnormalities. Neuro: No acute issues; acute confusion, hallucinations now resolved Cardiac: Hypotension likely due to hypovolemia/vomiting. He received 4L IVF in the ED. Norepinephrine gtt. Wean as tolerated. Pulmonary: No acute issues.? Renal:? Hypokalemia, hypomagnesemia likely due to several weeks of vomiting/diarrhea. Replete. ?Monitor electrolytes, renal function, intake and output. Endo: ??Underlying DM 2. Monitor hypo-/hyper-glycemia. Sliding scale per protocol. GI: ?Gastritis. PPI ordered. ID: Sepsis unlikely; no leukocytosis. Low-grade temp likely due to COVID-19 infection. Cultures pending. Continue empiric antibiotics. Heme/Onc: ?No acute issues. Psych: No acute issues Prophylaxis: pneumatic hoses, lovenox Diet: Clear liquid Patient's care was discussed in detail with Dr. Jose.? He is aware of all the above as well as the plan of care for this patient. Total time managing care of this patient today: 60 minutes.
[2024-04-14 02:48] LABS: Glucose, Whole Blood 298 mg/dL (60-115)
[2024-04-14] MEDS: Magnesium Sulfate/H2O 2 GM/50 ML PIGGYBACK IV (03:23)
[2024-04-14] MEDS: Pantoprazole Sodium 40 MG/10 ML VIAL IVPUSH (05:16)
[2024-04-14 05:34] LABS: MANUAL DIFF FLAG NO
[2024-04-14 05:35] LABS: Basophils Percent Auto 0.2 % (0-2); Hematocrit 32.9 % (42.0-52.0); Hemoglobin 11.5 g/dl (14.0-18.0); Imm Gran Abs Auto 0.04 X10*3/uL (0.00-0.03); Imm Gran Pct Auto 0.6 % (0.0-0.4); Lymphocytes Absolute Auto 1.4 X10*3/uL (1.2-4.9); Lymphocytes Percent Auto 23.3 % (20-40); Mean Corpuscular Hemoglobin 29.5 pg (27.0-33.0); Mean Corpuscular Volume 84.4 fL (80.0-98.0); Mean Platelet Volume 9.2 fL (9.4-12.4); Monocytes Absolute Auto 0.5 X10*3/uL (0.1-1.2); Monocytes Percent Auto 8.8 % (2-11); Neutrophils Absolute Auto 4.1 x10*3/uL (2.0-8.3); Neutrophils Percent Auto 67.1 % (45-73); Platelet Count 150 X10*3/uL (160-400); Red Cell Distribution Width 17.7 % (11.0-16.0); White Blood Count 6.2 X10*3/uL (4.8-10.8)
[2024-04-14 05:57] LABS: Anion Gap 12 (12-20); Blood Urea Nitrogen 10 mg/dL (9-16); Calcium 8.3 mg/dL (8.4-10.2); Carbon Dioxide 24 mmol/L (22-29); Chloride 106 mmol/L (96-108); Creatinine Clr Calc Pharmacy 79.5; Estimated Glomerular Filt Rate > 60; Glucose Random 251 mg/dL (60-115); Magnesium 2.5 mg/dL (1.6-2.6); Phosphorus 1.8 mg/dL (2.7-4.5); Potassium 3.4 mmol/L (3.3-5.1); Sodium 139 mmol/L (135-145)
[2024-04-14 07:46] LABS: Glucose, Whole Blood 207 mg/dL (60-115)
[2024-04-14] MEDS: Potassium Phosphate/NS 15 MMOL/250 ML PLAST..BAG 62.5 MMOL IV (08:13)
[2024-04-14] MEDS: Insulin Lispro 100 UNIT/ML 3 ML VIAL SUBCUT (08:13)
[2024-04-14 10:56] LABS: Glucose, Whole Blood 175 mg/dL (60-115)
--- NOTE | 2024-04-14 12:24 | PC.NURSE ---
pt requested to see provider for leaving AMA. pt said I feel more comfortable at home . pt alert and oriented and understand the risk of leaving AMA as provider came up and explained to pt and his aunt. AMA form completed w 2nd RN witnessed.
--- NOTE | 2024-04-14 12:43 | P.DS_ITS ---
DS: Providers Provider Date of Service: 04/14/24 Date of admission: 04/14/24 01: Date of discharge: 04/14/24 Primary care physician: Milton Beaulieu III, MD Attending physician on discharge: Willard Weldon Discharging clinician: Michelle Rodriguez DS: Diagnosis Discharge Diagnosis (1) Acute hypotension: Status: Acute (2) Hypovolemia associated with vomiting: Status: Acute (3) Hypokalemia: Status: Acute (4) Hypomagnesemia: Status: Acute (5) Gastritis: Status: Acute (6) COVID-19: Status: Acute DS: Summary Hospital Course Hospital Course: From H&P on the day of admission Mr. Denney is a 48-year-old male with history of GERD, OCD, anxiety, asthma? who presents to the emergency department with complaint of nausea, vomiting, abdominal pain and hallucinations.? He stated that he had been vomiting for about 3 hours prior to arrival however when questioned he stated his last meal was serial on either Tuesday or Tuesday. He reports having had abdominal pain with several days of diarrhea about 2 weeks ago that has since cleared. He denies any dizziness, lightheadedness, Chest pain or syncope/near syncopal events. No fever, chills or sweating. No changes in vision. He denies any difficulty breathing or shortness of breath, or any urinary irregularities. He reports that his blood sugars have been about the same as they usually are. He denies any known sick contacts and reports that the last time he left his house was approximately 11 days ago. 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 On arrival to the ER, his BP was 88/53, heart rate 103, respiratory rate 16, O2 sat 98% on room air. Temp 99.8? F. Laboratory data significant for? Potassium 2.7, BUN 5, glucose 205, initial lactic acid 2.6, magnesium 1.1, AST 142, ALT 83. UA ? specific gravity > 1.030, protein1+ , glucose >1000 mg/dL. COVID-19 positive. Imaging:? Chest x-ray unremarkable. Abdominal CT indicative of gastritis. ED course: ? The patient was persistently hypotensive while in the emergency room.? He received a total of 4 L crystalloids, 200 mL colloids. He was started on a norepinephrine drip. Attempts to wean off? pressor were unsuccessful. He was given magnesium 2 g, KCL 10 mEq, acetaminophen 1 g, Protonix 40 mg, ceftriaxone 1 g,? Solu-Cortef 100 mg. he was admitted to the ICU for close monitoring. He was weaned off of pressors and blood pressure remained stable. Low blood pressure thought to be due to hypovolemia due to multiple episodes of vomiting. He was downgraded to the medical floor. Shortly after arriving to the medical floor I was called by the nurse, patient stating he wanted to leave against medical advice. He says he feels that he can manage COVID at home and that he would be more comfortable there. His low blood pressure requiring vasopressor support was discussed with him and family member at the bedside. Risks of leaving were discussed, patient stating that he understands and accepts risks and stating i want out right now He was not receptive to further discussion. He was encouraged to return if he developed any new or worsening symptoms. Time Attestation Discharge Coordination Time (in mins): 36 Quality: Safe Use of Opioids Does Pt have an Active Cancer Diagnosis on the Problem List?: No Quality: Stroke Does the patient have a stroke diagnosis?: No Physical Exam Vital Signs: Vital Signs: Last Vital Signs Temp 98.8 F 04/14/24 11:18 Pulse 86 04/14/24 11:18 Resp 18 04/14/24 11:18 BP 104/56 L 04/14/24 11:18 Pulse Ox 96 04/14/24 11:18 O2 Del Method Room Air 04/14/24 11:18 BMI result Body Mass Index 32.3 Const: General: alert, awake and Physically active Orientation/consciousness: patient oriented x3 Neuro: General: patient oriented x3 DS: Data Data Completed and Pending Labs on day of discharge: Laboratory Results - last 24 hr 04/13/24 04/13/24 04/13/24 15:21 15:42 18:06 WBC 6.2 RBC 4.63 Hgb 13.2 L Hct 38.3 L MCV 82.7 MCH 28.5 MCHC 34.5 RDW 17.3 H Plt Count 163 D MPV 9.4 Immature Gran % (Auto) 0.6 H Neut % (Auto) 66.9 Lymph % (Auto) 19.7 L [place] % (Auto) 11.0 Eos % (Auto) 1.3 Baso % (Auto) 0.5 Lymph # (Auto) 1.2 [place] # (Auto) 0.7 Eos # (Auto) 0.1 Baso # (Auto) 0.0 Abs Immat Gran (auto) 0.04 H Absolute Neuts (auto) 4.1 Absolute Nucleated RBC 0.040 H Nucleated RBC % (auto) 0.6 H PT 13.1 H INR 1.1 APTT 29.2 Sodium 139 Potassium 2.7 L* D Chloride 103 Carbon Dioxide 23 Anion Gap 16 BUN 5 L Creatinine 1.38 Estim Creat Clear Calc TNP Estimated GFR 55 POC Glucose Random Glucose 205 H Lactic Acid 2.6 H* Lactic Acid F/U @ 2Hr 1.9 Calcium 8.6 D Phosphorus Magnesium 1.1 L* Total Bilirubin 0.5 AST 142 H ALT 83 H Alkaline Phosphatase 86 Troponin I High Sens 12.1 B-Natriuretic Peptide 15 Total Protein 6.8 Albumin 3.7 Lipase 14 Urine Color Urine Appearance Urine pH Ur Specific [place] Urine Protein Urine Glucose (UA) Urine Ketones Urine Blood Urine Nitrite Ur Leukocyte Esterase Urine RBC Urine WBC Ur Squamous Epith Cells Urine Bacteria Hyaline Casts Influenza Type A (PCR) NEGATIVE Influenza Type B (PCR) NEGATIVE RSV RNA Qual (PCR) NEGATIVE SARS-CoV-2 RNA (RT-PCR) POSITIVE A 04/13/24 04/13/24 04/14/24 19:12 23:57 02:44 WBC 7.1 RBC 4.29 L Hgb 12.4 L Hct 35.5 L MCV 82.8 MCH 28.9 MCHC 34.9 RDW 17.3 H Plt Count 161 MPV 9.5 Immature Gran % (Auto) 1.0 H Neut % (Auto) 66.7 Lymph % (Auto) 18.4 L [place] % (Auto) 12.5 H Eos % (Auto) 0.7 Baso % (Auto) 0.7 Lymph # (Auto) 1.3 [place] # (Auto) 0.9 Eos # (Auto) 0.1 Baso # (Auto) 0.1 Abs Immat Gran (auto) 0.07 H Absolute Neuts (auto) 4.8 Absolute Nucleated RBC 0.030 H Nucleated RBC % (auto) 0.4 H PT INR APTT Sodium Potassium Chloride Carbon Dioxide Anion Gap BUN Creatinine Estim Creat Clear Calc Estimated GFR POC Glucose 298 H Random Glucose Lactic Acid Lactic Acid F/U @ 2Hr Calcium Phosphorus Magnesium Total Bilirubin AST ALT Alkaline Phosphatase Troponin I High Sens B-Natriuretic Peptide Total Protein Albumin Lipase Urine Color Yellow Urine Appearance Clear Urine pH 5.5 Ur Specific [place] >= 1.030 H Urine Protein 30 (1+) H Urine Glucose (UA) >=1000 H Urine Ketones Negative Urine Blood Negative Urine Nitrite Negative Ur Leukocyte Esterase Negative Urine RBC 0-2 Urine WBC 0-5 Ur Squamous Epith Cells 0-2 Urine Bacteria None Seen Hyaline Casts 0-2 Influenza Type A (PCR) Influenza Type B (PCR) RSV RNA Qual (PCR) SARS-CoV-2 RNA (RT-PCR) 04/14/24 04/14/24 04/14/24 05:24 07:36 10:51 WBC 6.2 RBC 3.90 L Hgb 11.5 L Hct 32.9 L MCV 84.4 MCH 29.5 MCHC 35.0 RDW 17.7 H Plt Count 150 L MPV 9.2 L Immature Gran % (Auto) 0.6 H Neut % (Auto) 67.1 Lymph % (Auto) 23.3 [place] % (Auto) 8.8 Eos % (Auto) 0.0 Baso % (Auto) 0.2 Lymph # (Auto) 1.4 [place] # (Auto) 0.5 Eos # (Auto) 0.0 Baso # (Auto) 0.0 Abs Immat Gran (auto) 0.04 H Absolute Neuts (auto) 4.1 Absolute Nucleated RBC 0.000 Nucleated RBC % (auto) 0.0 PT INR APTT Sodium 139 Potassium 3.4 D Chloride 106 Carbon Dioxide 24 Anion Gap 12 BUN 10 Creatinine 1.21 Estim Creat Clear Calc 79.5 Estimated GFR > 60 POC Glucose 207 H 175 H Random Glucose 251 H Lactic Acid Lactic Acid F/U @ 2Hr Calcium 8.3 L Phosphorus 1.8 L Magnesium 2.5 Total Bilirubin AST ALT Alkaline Phosphatase Troponin I High Sens B-Natriuretic Peptide Total Protein Albumin 4.0 Lipase Urine Color Urine Appearance Urine pH Ur Specific [place] Urine Protein Urine Glucose (UA) Urine Ketones Urine Blood Urine Nitrite Ur Leukocyte Esterase Urine RBC Urine WBC Ur Squamous Epith Cells Urine Bacteria Hyaline Casts Influenza Type A (PCR) Influenza Type B (PCR) RSV RNA Qual (PCR) SARS-CoV-2 RNA (RT-PCR) Discharge Plan Discharge Patient Disposition: Left Against Medical Advice Discharge Diagnosis: nausea/vomiting hypovolemic shock covid 19 Referrals: Milton Beaulieu III, MD [Primary Care Provider] - 1 Week Discharge Medications: No Action rosuvastatin 20 mg tablet 20 mg PO BEDTIME Brilinta 90 mg tablet 90 mg PO BID sacubitril-valsartan [Entresto] 24-26 mg tablet 1 tab PO BID dapagliflozin propanediol [Farxiga] 10 mg tablet 10 mg PO DAILY Trelegy Ellipta 100-62.5-25 mcg blister with device 1 inh inhalation DAILY Trulicity 3 mg/0.5 mL pen injector 3 mg subcut LIRIANO Lantus Solostar U-100 Insulin 100 unit/mL (3 mL) insulin pen 60 unit subcut BEDTIME fluticasone propionate 50 mcg/actuation spray,suspension 1 spray intranasal DAILY clonazepam 0.5 mg tablet 0.5 mg PO BID PRN (Reason: Anxiety) (DME) FreeStyle Shelly 2 Sensor Kit See Rx Instructions .ROUTE .MEDSUPPLY Qty: 1 Rx Instructions: As directed escitalopram oxalate 20 mg tablet 20 mg PO DAILY (DME) pen needle, diabetic [BD Venessa 2nd Gen Pen Needle] 32 gauge x 5/32 needle See Rx Instructions .ROUTE .MEDSUPPLY Qty: 50 Rx Instructions: As directed esomeprazole magnesium 40 mg capsule,delayed release(DR/EC) 40 mg PO BID@0630,1630 albuterol sulfate 90 mcg/actuation HFA aerosol inhaler 2 inh inhalation Q6H PRN (Reason: Shortness Of Breath Or Wheezing) (DME) FreeStyle Lite Strips Strip See Rx Instructions Not Applicable .MEDSUPPLY Qty: 10 Rx Instructions: As directed tizanidine 4 mg capsule 4 mg PO TID PRN (Reason: muscle spasticity) Qty: 30 0RF Discharge Orders: Discharge Order (Routine); Ordered 04/14/24 Ordered By: Michelle Rodriguez Print Language: [place] Care Plan Goals: left ama Health Concerns: left ama Plan of Treatment: left ama Assessment: left ama Discharge Date/Time: 04/14/24 12:37
--- NOTE | 2024-04-14 13:47 | MHC.CM.PN ---
Pt left AMA prior to CM assessment and discussion regarding d/c planning needs
== END 2024-04-14 12:37 | disposition left against medical advice (07) | DRG 177 ==
LOC: HO.ED 20:15 → HO.EDOVER 04-14 01:32 → HO.ICU 04-14 02:34 → HO.IMC 04-14 08:50
PROVIDERS: Internal Medicine Critical Care Medicine; Physician Assistant Medical; Admitting Provider Nurse Practitioner Family; Emergency Provider Emergency Medicine; PCP Internal Medicine; Visit Provider Physician Assistant Medical
DX: U07.1 COVID-19 (principal); R57.1 Hypovolemic shock; F17.210 Nicotine dependence, cigarettes, uncomplicated; K21.9 Gastro-esophageal reflux disease without esophagitis; K29.70 Gastritis, unspecified, without bleeding; E86.1 Hypovolemia; E87.6 Hypokalemia; E83.42 Hypomagnesemia; Z71.6 Tobacco abuse counseling; Z79.51 Long term (current) use of inhaled steroids; Z79.4 Long term (current) use of insulin; Z79.899 Other long term (current) drug therapy
CPT/HCPCS: 0241U; 36415; 71045; 74177; 80048; 80053; 81001; 82040; 82947; 83605; 83690; 83735; 83880; 84100; 84484; 85025; 85610; 85730; 87040; 93005; 99285; J0131; J0696; J1650; J1720; J2470; J3475; J3480; J7120; P9047; Q9967

== ENCOUNTER → 2024-04-13 15:09 | Outpatient (BNV) | payer OTHER, SELFPAY | PROVIDERS: Admitting Provider Nurse Practitioner Family; Emergency Provider Emergency Medicine; PCP Internal Medicine; Visit Provider Internal Medicine | DX: R94.31 Abnormal electrocardiogram [ECG] [EKG] (principal) | CPT/HCPCS: 93010 ==

== ENCOUNTER → 2024-04-13 15:23 | Outpatient (BNV) | payer OTHER, SELFPAY | PROVIDERS: Emergency Provider Emergency Medicine; PCP Internal Medicine; Visit Provider Radiology Diagnostic Radiology | DX: K29.70 Gastritis, unspecified, without bleeding (principal); Z95.0 Presence of cardiac pacemaker | CPT/HCPCS: 71045; 74177 ==

== ENCOUNTER → 2024-04-14 01:27 | Outpatient (BNV) | payer OTHER, SELFPAY | PROVIDERS: Admitting Provider Nurse Practitioner Family; Emergency Provider Emergency Medicine; PCP Internal Medicine; Visit Provider Physician Assistant Medical | DX: U07.1 COVID-19 (principal); I95.9 Hypotension, unspecified; E86.1 Hypovolemia; Z53.29 Procedure and treatment not carried out because of patient's decision for other reasons; E87.6 Hypokalemia; E83.42 Hypomagnesemia; K29.70 Gastritis, unspecified, without bleeding | CPT/HCPCS: 99239 ==

== ENCOUNTER → 2024-04-14 01:27 | Outpatient (BNV) | payer OTHER, SELFPAY | PROVIDERS: Admitting Provider Nurse Practitioner Family; Emergency Provider Emergency Medicine; PCP Internal Medicine; Visit Provider Nurse Practitioner Family | DX: I95.9 Hypotension, unspecified (principal); E86.1 Hypovolemia; E87.6 Hypokalemia; E83.42 Hypomagnesemia; K29.70 Gastritis, unspecified, without bleeding; U07.1 COVID-19 | CPT/HCPCS: 99291 ==